=== PATIENT | male | born 1960 | race Caucasian/White ===

== ENCOUNTER 2018-10-03 12:48 | Inpatient (IN) ==
--- NOTE | 2018-10-03 13:48 | Emergency Department Note ---
Disposition Clinical Impression: Pneumonia, Acute kidney injury, Urinary retention Hypotension Qualifiers: Hypotension type: unspecified hypotension type Qualified Code(s): I95.9 - Hypotension, unspecified Disposition: Admitted As Inpatient Condition: Good Time of Disposition: 15:48 General Adult HPI - General Chief complaint: ED Abdominal Pain Stated complaint: unable to void Time Seen by Provider: 10/03/18 13:23 Source: patient, family () Limitations: no limitations Nursing Notes Reviewed: Yes Vital Signs Reviewed: Yes - History of Present Illness HPI Narrative: 58-year-old male morbidly obese, history of hypertension, heart failure and atrial fibrillation on Coumadin presents emergency department with difficulty with urination and low blood pressure. Patient states for past 2 days he dribbles when he urinates. He denies any foul smell, blood, or pain. She was recently seen here at [facility] transferred to [facility] for fall G.I. bleed pneumonia and urinary tract infection. He was there for 8 days and was recently discharged 4 days ago. At that time they state his blood pressure was low and that he was septic and on multiple antibiotics. When he left his blood pressure was still kind of low. When he came home he resumed his home medications which they do not recall. Today physical therapy came to evaluate the patient for the 1st time in noted that his blood pressure readings were low. In triage here they remained low and they state they have been consistently systolic 70s. Review of his medical record medication list here shows that he has lisinopril which they agree sounds familiar. He also states he has chronic kidney disease stage III. He denies any G.I. bleed symptoms at this time such as hemoptysis, hematemesis, bloody stool black tarry stool. They state no endoscopic procedures were performed at [facility] in the his blood count remained stable. He denies any chest pain or worsening shortness of breath compared to his baseline. He has not passed out. Pain Scale: 0 - Related Data Home Medications Medication Instructions Recorded Confirmed Aspirin Enteric Coated [Aspirin EC] 81 mg PO DAILY 07/10/15 07/10/15 Fluticasone/Salmeterol [Advair 1 each IH Q12H 07/10/15 07/10/15 500-50 Diskus] Furosemide [Lasix] 40 mg PO BID 07/10/15 07/10/15 Gabapentin 1 - 2 cap PO TID PRN 07/10/15 07/10/15 Glimepiride [Amaryl] 2 mg PO BID 07/10/15 07/10/15 HYDROcodone/Acet 5/325 mg [[place] 1 tab PO Q4-6H PRN 07/10/15 07/10/15 5-325 mg] Insulin DETEMIR [Levemir Flextouch] 20 unit SQ HS 07/10/15 07/10/15 Isosorbide MONOnitrate (24 HR) 30 mg PO QPM 07/10/15 07/10/15 [Imdur] Levalbuterol HCl [Xopenex] 0.63 mg IH Q4-6H PRN 07/10/15 07/10/15 Lisinopril [Zestril] 5 mg PO QPM 07/10/15 07/10/15 Metolazone [Zaroxolyn] 2.5 mg PO QAM 07/10/15 07/10/15 Metoprolol XL (24 HR) Succ [Toprol 50 mg PO DAILY 07/10/15 07/10/15 XL] Rivaroxaban [Xarelto] 15 mg PO QPM 07/10/15 07/10/15 Simvastatin [Zocor] 40 mg PO QPM 07/10/15 07/10/15 Sitagliptin Phosphate [Januvia] 50 mg PO QAM 07/10/15 07/10/15 Tiotropium [Spiriva] 1 puff IH DAILY PRN 07/10/15 07/10/15 Tizanidine [Zanaflex] 4 mg PO HS 07/10/15 07/10/15 predniSONE [PredniSONE] 10 mg PO AD 07/10/15 07/10/15 Previous Rx's Medication Instructions Recorded Nitrofurantoin Monohyd/M-Cryst 100 mg PO BID #14 capsule 06/19/18 [Macrobid 100 mg Capsule] Phenazopyridine HCl [Pyridium] 200 mg PO TID #6 tab 06/19/18 Allergies Allergy/AdvReac Type Severity Reaction Status Date / Time No Known Drug Allergies Allergy See Verified 10/03/18 13:11 Comments All systems ED: reviewed and negative except as stated. Review of Systems: As Per HPI Constitutional: Denies: fever, chills, weakness ENT ED: Denies: congestion Cardiovascular: Denies: chest pain Respiratory: Reports: dyspnea (Chronic). Denies: cough Gastrointestinal: Denies: abdominal pain, nausea, vomiting Genitourinary: Reports: urgency, frequency. Denies: dysuria, hematuria, disch arge Musculoskeletal: Denies: back pain, neck pain Integumentary: Denies: rash, abrasion Neurological: Denies: headache, weakness Endocrine: Reports: fatigue Past Medical History - Past Medical History Attestation: Yes The following information was validated with the patient. Source: patient Medical history: Reports: non-contributory, atrial fibrillation, CHF, COPD, DVT, diabetes, GERD, hypertension, pulmonary embolus, renal disease Psychiatric history: Reports: no psych history - Social History Smoking Status: Never smoker Smokeless Tobacco Status: No Alcohol use: Reports: none Drug use: Reports: none Physical Exam - General Limitations: no limitations General appearance: alert, in no apparent distress, obese (Morbidly) - Head Head exam: atraumatic, normocephalic, normal inspection - Eye Eye exam: Present: normal appearance, PERRL, EOMI. Absent: scleral icterus - ENT ENT exam: normal exam, normal oropharynx, mucous membranes moist, normal external ear exam - Neck Neck exam: Present: normal inspection, full ROM, trachea midline - Chest Chest inspection: Present: normal inspection, symmetric chest wall rise, other - Respiratory Respiratory exam: Present: normal lung sounds bilaterally. Absent: respiratory distress - Cardiovascular Cardiovascular exam: Present: regular rate, normal rhythm, normal heart sounds. Absent: systolic murmur, diastolic murmur - Abdominal Exam Abdominal exam: Present: soft (Obese), Non-Tender, diminished bowel sounds, other (Bruising from insulin injections). Absent: tenderness, distention, guarding, rebound, rigidity - Extremities Exam Extremities exam: Present: normal inspection, full ROM, normal capillary refill. Absent: tenderness, pedal edema, calf tenderness - Neurological Exam Neurological exam: Present: alert, oriented X3 - Psychiatric Psychiatric exam: Present: normal affect, normal mood - Skin Skin exam: Present: warm, dry, intact, normal color. Absent: rash, cyanosis, diaphoresis Course Course Narrative: Patient presents with initial complaint of inability to urinate. He has a history of chronic kidney disease. He was recently transferred to [facility] and discharge for G.I. bleed, sepsis, kidney injury and pneumonia. No recent surgical procedures are anesthesia. He states he was placed on Lasix and was urinating much more than today with the past day. Another complaint was his low blood pressure and will check some basic labs to rule out infection. Will p lace a Paredes catheter in and send out for urinalysis to rule out infection. Recheck here he has had to blood pressure readings with his systolic of 110 and 128. Will continue to evaluate for his blood pressure appears normal here at this time. He denies any G.I. bleed symptoms but will check basic labs including an INR as he is on Coumadin. He denies any recent fall or injury. - Reevaluation(s) Reevaluation #1: Urinalysis does not appear consistent with infection. He does not have a leukocytosis. He does demonstrate acute kidney injury as his creatinine is significantly elevated from his baseline currently at 4.7. His blood pressure has responded with fluids. His chest x-ray did show a right upper lobe infiltrate however he is not hypoxic. He does not report any new or worsening cough congestion for difficulty breathing however was recently discharged and treated for pneumonia at outside facility. Patient will require admission in further treatment and management and close monitoring of his blood pressure. Given his history of congestive heart failure he has been cautiously fluid resuscitated. Will continue to monitor. He has a Paredes for monitoring of his ins and outs. Impression is pneumonia, hypotension, urinary retention, acute kidney injury. Time: 15:44 - Consultations Consultation #1: Spoke with on-call hospitalist jesse Elias to admit for TERESA, pneumonia, urinary retention, hypotension. Due to patient's size he is unable to obtain a CT scan he has been ordered a ultrasound to evaluate the kidneys. Time: 15:48 Vital Signs Temperature 97.4 F L 10/03/18 13:12 Pulse Rate 75 10/03/18 13:12 Respiratory Rate 20 10/03/18 13:12 Blood Pressure 75/53 10/03/18 13:12 O2 Sat by Pulse Oximetry 96 10/03/18 13:12 Temperature 97.4 F L 10/03/18 13:12 Pulse Rate 59 10/03/18 15:27 Respiratory Rate 20 10/03/18 15:27 Blood Pressure 101/44 10/03/18 15:27 O2 Sat by Pulse Oximetry 100 10/03/18 15:27 Oxygen Delivery Oxygen Delivery Room Air Medical Decision Making - MDM Narrative Medical decision making narrative: Patient was discussed with my attending physician who agrees with ED management and final disposition. They independently evaluated the patient. Please refer to their attestation to this encounter for additional information. This note was generated by [employer] voice recognition software and as a result grammatical or spelling errors may occur using this program. - Medical Records Medical records reviewed: Yes I reviewed the patient's medical records. - Lab Data Lab results reviewed: Yes I reviewed the patient's lab results. Result diagrams: 10/03/18 14:42 10/03/18 14:42 Lab Results 10/03/18 10/03/18 10/03/18 Range/Units 14:00 14:42 14:42 WBC 9.4 (4.3-11.1) K/mcL RBC 3.72 L (4.19-5.50) M/mcL Hgb 12.0 L (12.9-16.9) g/dL Hct 37.5 (37.5-50.1) % MCV 100.8 H (83.0-100.0) fL MCH 32.3 (28.0-33.3) pg MCHC 32.0 (31.6-35.5) g/dL RDW 15.4 H (11.5-14.5) % Plt Count 224 (140-400) K/mcL MPV 11.6 (9.4-12.4) fL Immature Gran % 1.6 (0-4) % Seg Neutrophils % 71.1 % Lymphocytes % 17.0 % Monocytes % 6.4 % Eosinophils % 3.5 % Basophils % 0.4 % Neutrophils # 6.7 (1.6-8.9) K/mcL Lymphocytes # 1.6 (0.6-4.6) K/mcL Monocytes # 0.6 (0.0-1.3) K/mcL Eosinophils # 0.3 (0.0-0.6) K/mcL Basophils # 0.0 (0.0-0.2) K/mcL PT 30.0 H (9.4-12.1) Seconds INR 2.7 Sodium (136-145) mEq/L Potassium (3.5-5.1) mEq/L Chloride (98-107) mEq/L Carbon Dioxide (23-29) mEq/L BUN (6-20) mg/dL Creatinine (0.70-1.30) mg/dL Est GFR ( Amer) (> 60) Est GFR (Non-Af Amer) (> 60) BUN/Creatinine Ratio (6-26) Glucose (70-105) mg/dL Calculated Osmolality (280-300) Calcium (8.6-10.3) mg/dL Urine Color Yellow (Yellow) Urine Clarity Clear (Clear) Urine pH 5.0 (5.0-8.0) pH Units Ur Specific [place] 1.027 H (1.010-1.025) Urine Protein Negative (Neg-Trace) mg/dL Urine Glucose (UA) Normal (Normal) mg/dL Urine Ketones Negative (Negative) mg/dL Urine Blood Negative (Negative) Urine Nitrite Negative (Negative) Urine Bilirubin Small H (Negative) Urine Urobilinogen Normal (Normal) mg/dL Ur Leukocyte Esterase Small H (Negative) Urine Microscopic RBC 0-3 (0-3) per hpf Urine Microscopic WBC 15-30 H (0-3) per hpf Ur Squamous Epith Cells Many H (None-Few) per lpf Urine Bacteria None Seen (None-Few) per hpf Hyaline Casts None Seen (None-Few) per lpf Ur Culture Indicated? NO. A (NO) Blood Type Antibody Screen 10/03/18 10/03/18 Range/Units 14:42 14:48 WBC (4.3-11.1) K/mcL RBC (4.19-5.50) M/mcL Hgb (12.9-16.9) g/dL Hct (37.5-50.1) % MCV (83.0-100.0) fL MCH (28.0-33.3) pg MCHC (31.6-35.5) g/dL RDW (11.5-14.5) % Plt Count (140-400) K/mcL MPV (9.4-12.4) fL Immature Gran % (0-4) % Seg Neutrophils % % Lymphocytes % % Monocytes % % Eosinophils % % Basophils % % Neutrophils # (1.6-8.9) K/mcL Lymphocytes # (0.6-4.6) K/mcL Monocytes # (0.0-1.3) K/mcL Eosinophils # (0.0-0.6) K/mcL Basophils # (0.0-0.2) K/mcL PT (9.4-12.1) Seconds INR Sodium 131 L (136-145) mEq/L Potassium 4.7 (3.5-5.1) mEq/L Chloride 95 L (98-107) mEq/L Carbon Dioxide 26 (23-29) mEq/L BUN 63 H (6-20) mg/dL Creatinine 4.70 H (0.70-1.30) mg/dL Est GFR ( Amer) 16 L (> 60) Est GFR (Non-Af Amer) 13 L (> 60) BUN/Creatinine Ratio 13 (6-26) Glucose 301 H (70-105) mg/dL Calculated Osmolality 301 H (280-300) Calcium 9.2 (8.6-10.3) mg/dL Urine Color (Yellow) Urine Clarity (Clear) Urine pH (5.0-8.0) pH Units Ur Specific [place] (1.010-1.025) Urine Protein (Neg-Trace) mg/dL Urine Glucose (UA) (Normal) mg/dL Urine Ketones (Negative) mg/dL Urine Blood (Negative) Urine Nitrite (Negative) Urine Bilirubin (Negative) Urine Urobilinogen (Normal) mg/dL Ur Leukocyte Esterase (Negative) Urine Microscopic RBC (0-3) per hpf Urine Microscopic WBC (0-3) per hpf Ur Squamous Epith Cells (None-Few) per lpf Urine Bacteria (None-Few) per hpf Hyaline Casts (None-Few) per lpf Ur Culture Indicated? (NO) Blood Type O POSITIVE Antibody Screen NEGATIVE - Radiology Data Radiology results reviewed: Yes I reviewed the patient's radiology results. Chest X-Ray 10/03/18 13:46 IMPRESSION: Right upper lobe airspace disease possibly representing pneumonia D/ / Azeem Root MD / Azeem Root MD Interpreting Provider: Azeem Root MD - EKG Data EKG #1 EKG attestation: Yes I reviewed and interpreted this EKG. EKG results narrative: EKG performed 1400 normal sinus rhythm 62 beats per minute, normal axis, good R wave progression, no ST elevation or depression, intervals appear within normal limits. No old EKG available for comparison at this time. No acute ischemic changes. Attestation Statement - Attestation Attestation: I examined this patient and my medical decision-making was reviewed with the Resident Physician. I agree with the documented findings, disposition and treatment plan as described except to the extent set forth below. Urinary retention, morbid obesity, obesity hypoventilation syndrome with resulting pneumonia. Recent fall and evaluation at [facility]. We will admit for further management of pneumonia, start antibiotics avoid nephrotoxic antibiotics, IV fluids, likely will require nephrology consultation for acute renal failure. I spent greater than 35 minutes of critical care time resuscitating this acutely ill patient suffering from acute renal failure in the setting of pneumonia. This was excluding billable procedures.
[2018-10-03 14:15] LABS: Bilirubin,Urine Small (Negative); Blood,Urine Negative (Negative); Clarity,Urine Clear (Clear); Color,Urine Yellow (Yellow); Glucose,Urine (UA) Normal (Normal); Ketones,Urine Negative (Negative); Leukocyte Esterase,Urine Small (Negative); Nitrite,Urine Negative (Negative); Protein,Urine Negative (Neg-Trace); Specific Gravity,Urine 1.027 (1.010-1.025); Urobilinogen,Urine Normal (Normal)
[2018-10-03 14:18] LABS: Bacteria,Urine None Seen per hpf (None-Few); RBC,Urine 0-3 per hpf (0-3); Squamous Epithelial Cell,Urine Many per lpf (None-Few); WBC,Urine 15-30 per hpf (0-3)
[2018-10-03 14:28] LABS: Hyaline Casts,Urine None Seen per lpf (None-Few)
[2018-10-03] MEDS ORDERED: 0.9 % Sodium Chloride 500 ML IVC ONE (14:33)
[2018-10-03 14:56] LABS: Basophils % 0.4 %; Eosinophils # 0.3 K/mcL (0.0-0.6); Eosinophils % 3.5 %; Hematocrit 37.5 % (37.5-50.1); Immature Granulocytes % 1.6 % (0-4); Lymphocytes # 1.6 K/mcL (0.6-4.6); Mean Corpuscular Hemoglobin 32.3 pg (28.0-33.3); Mean Corpuscular Volume 100.8 fL (83.0-100.0); Mean Platelet Volume 11.6 fL (9.4-12.4); Monocytes # 0.6 K/mcL (0.0-1.3); Monocytes % 6.4 %; Neutrophils # 6.7 K/mcL (1.6-8.9); Platelet Count 224 K/mcL (140-400); Red Blood Count 3.72 M/mcL (4.19-5.50); Red Cell Distribution Width 15.4 % (11.5-14.5); Segmented Neutrophils % 71.1 %
[2018-10-03 15:16] LABS: Calcium 9.2 mg/dL (8.6-10.3); Potassium 4.7 mEq/L (3.5-5.1)
[2018-10-03 15:22] LABS: INR 2.7
[2018-10-03] MEDS ORDERED: Piperacillin/Tazobactam 3.375 GM in Water for inj. (sterile) 20 ML 20 ML IVP ONE (15:42)
[2018-10-03] MEDS ORDERED: Cefepime HCl 2,000 MG in Water for inj. (sterile) 20 ML IVP ONE (15:42)
[2018-10-03] MEDS ORDERED: 0.9 % Sodium Chloride 1,000 ML IVC ONE (15:43)
[2018-10-03] MEDS ORDERED: Azithromycin 500 MG in D5% in Water 250 ML IVPB ONE (16:12)
--- NOTE | 2018-10-03 17:34 | Internal Med History&Physical ---
<Andrea Nowak - Last Filed: 10/03/18 18:39> Date of Encounter: 10/03/18 Time of Encounter: 04:30 Internal Medicine - H&P: HPI Chief complaint: Difficulty urinating Admitted From: Home Plans for Post Hospital Care: Home History of present illness: Mr. Llanes is a 58 year old male with hx significant for Afib, CHF, COPD, DM, HTN, CKD III, and multiple prior nephrolithiasis who was working with PT today a nd found to be hypotensive with systolics in the 70's and told to go to the ED. He says he had no symptoms with hypotension. His main complaint is he has been unable to urinate more than a few dribbles the last 2 days. He previously was urinating normally. He says he feels the urge to urinate but after a few drops the urge goes away. He denies hematuria, dysuria, flank pain. He says he has gained 10 lbs last couple days. Upon arrival to the ED initial vitals 97.4F, HR 75, RR 20, BP 75/53, 96%rmair. Cxr showed R upper lobe airspace disease, possibly pneumonia. He was given initial fluid bolus 500ml that pressures initally appeared to respond to at 129/69. He received another 1L bolus but BP h as been lower since last recorded at 94/69 and lower systolics in 80's when I was in room. He was recently dc from [facility] 4 days ago and was treated for fall, gi bleed, sepsis, pneumonia, and UTI. He was given no new medications at dc. He thinks his BP is normally 105-120 systolic. He denies subjective fever/chills, blurry vision, diplopia, dizziness/lightheadedness, chest pain, pleuritic chest pain, palpitations, productive cough different from baseline, sob worse from baseline, abdominal pain, N/V, constipation, diarrhea, blood in stool. Past Med Surg Social Fam HX - Past Medical History Medical history: non-contributory, atrial fibrillation, CHF, COPD, DVT, diabetes, GERD, hypertension, kidney stones, pulmonary embolus, renal disease Psychiatric history: no psych history - Social History Smoking Status: Never smoker Smokeless Tobacco Status: No Alcohol use: none Drug use: none Internal Medicine - H&P: Meds Aspirin Enteric Coated [Aspirin EC] 81 mg PO DAILY 07/10/15 [History] Fluticasone/Salmeterol [Advair 500-50 Diskus] 1 each IH Q12H 07/10/15 [History] Insulin DETEMIR [Levemir Flextouch] 20 unit SQ HS 07/10/15 [History] Rivaroxaban [Xarelto] 15 mg PO QPM 07/10/15 [History] Sitagliptin Phosphate [Januvia] 50 mg PO QAM 07/10/15 [History] Allergy/AdvReac Type Severity Reaction Status Date / Time No Known Drug Allergies Allergy See Verified 10/03/18 13:11 Comments All Systems PM: A 10-system review of systems was performed and is negative for pertinent findings except as documented above in the HPI. - Constitutional Vitals: Temp Pulse Resp BP Pulse Ox 97.4 F L 59 20 101/44 100 10/03/18 13:12 10/03/18 15:27 10/03/18 15:27 10/03/18 15:27 10/03/18 15:27 Exam: General: Awake, alert, morbidly obese, no acute distress or signs of toxicity Head: Atraumatic, normocephalic Eye: Pupils equal and round, EOMi, no scleral icterus ENT: mucus membranes moist Chest: Symmetric chest rise, non tender to palpation Cardiac: RRR, distant but present S1/S2, no murmurs, rubs, gallops appreciated, radial pulses 2+ bilat, trace edema Pulmonary: Normal resp effort, decreased air movement, diminished throughout, no wheezes, rhonchi, rales appreciated Abdominal: Soft, tender to palpation RUQ/LUQ, non distended, no voluntary guarding, rebound, or rigidity. Bruising on abdomen Back: Non tender, no CVA tenderness Extremities: No clubbing, cyanosis Neuro: CN's grossly intact, no focal deficits Psych: normal affect Integumentary: [place], warm, dry, intact Internal Med - H&P Results - Labs CBC & Chem 7: 10/03/18 14:42 10/03/18 14:42 Labs: Short CBC 10/03/18 Range/Units 14:42 WBC 9.4 (4.3-11.1) K/mcL Hgb 12.0 L (12.9-16.9) g/dL Hct 37.5 (37.5-50.1) % Plt Count 224 (140-400) K/mcL Neutrophils # 6.7 (1.6-8.9) K/mcL BMP 10/03/18 14:42 Sodium 131 L Potassium 4.7 Chloride 95 L Carbon Dioxide 26 BUN 63 H Creatinine 4.70 H Glucose 301 H Calcium 9.2 Urine 10/03/18 Range/Units 14:00 Urine Color Yellow (Yellow) Urine Clarity Clear (Clear) Urine pH 5.0 (5.0-8.0) pH Units Ur Specific [place] 1.027 H (1.010-1.025) Urine Protein Negative (Neg-Trace) mg/dL Urine Glucose (UA) Normal (Normal) mg/dL - Impressions ITS Impressions Chest X-Ray 10/03/18 13:46 IMPRESSION: Right upper lobe airspace disease possibly representing pneumonia D/ / Azeem Root MD / Azeem Root MD Interpreting Provider: Azeem Root MD - Assessment and plan (1) Hypotension Current Visit: Yes Status: Acute Assessment and plan: -Arrival to ED RR 20, BP 75/53, TERESA, and suspected pneumonia on ED -CXR 10/03/18 Right upper lobe airspace disease possibly representing pneumonia -I do not think he is septic at this time given no signs of infection and pneumonia call on cxr appears soft to me and likely residual imaging lag from recent pneumonia treatment. -Will treat as sepsis till proven otherwise but does not meet criteria at this time. -BP appears to initially respond to fluid bolus in ED but all repeat readings since have been lower. Likely cuff placement discrepancy. -WBC 9.4, afebrile -Empiric vanc, cefepime, and zosyn renally dosed given Cr 4.7 -BC x2 sent -Resp pcr, legionella, s pneumo, sputum culture/gram stain, lactic urine culture pending -Most recent BP 101/44 -Will continue to monitor Qualifiers: Hypotension type: unspecified hypotension type Qualified Code(s): I95.9 - Hypotension, unspecified (2) Acute kidney injury Current Visit: Yes Status: Acute Assessment and plan: -Cr 4.7, BUN 63 -Etiology unknown at this time prerenal vs postrenal -Hypotensive on arrival -Minimal urine output last 2 days with just dribbles -Obstructive less likely given coy was placed in ED and minimal urine output drained -Will get renal US and ECHO -Renal dose meds -Hold antihypertensives and nephrotoxic meds -Will trend renal function, urine output, and electrolytes -Neph consulted (3) Urinary retention Current Visit: Yes Status: Acute Assessment and plan: -2 days of minimal urine output. -Coy was placed in ED and minimal output -TERESA currently with Cr 4.7 and BUN 63 -Will monitor (4) Pneumonia Current Visit: Yes Status: Suspected Assessment and plan: -Suspected pneumonia on CXR in ED -CXR 10/03/18 Right upper lobe airspace disease possibly representing pneumonia -No other signs of infection, wbc 9.4, afebrile, baseline cough and sob not worsening -Was treated for pneumonia at [facility] last week. CXR findings could likely be post treatment imaging lag. -Will send resp infectious workup thats pending -Will continue to monitor Qualifiers: Pneumonia type: due to unspecified organism Laterality: right Lung location: upper lobe of lung Qualified Code(s): J18.1 - Lobar pneumonia, unspecified organism (5) Afib Current Visit: No Status: Chronic Assessment and plan: Hx of afib. -Anticoagulated on warfarin -Home meds not fully clear but appears from past records to be controlled with diltiazem, metoprolol, and amioderone. -Will hold till med rec finalized Qualifiers: Atrial fibrillation type: chronic Qualified Code(s): I48.2 - Chronic atrial fibrillation (6) Diabetes mellitus type 2, insulin dependent Current Visit: Yes Status: Acute Assessment and plan: -Glucose on arrival 301 -Past records indicate basal, ssi, and adjuncts -Will start basal and ssi now (7) CKD (chronic kidney disease) stage 3, GFR 30-59 ml/min Current Visit: Yes Status: Acute Assessment and plan: Hx of CKD 3 -TERESA currently -Renal dosing meds, avoiding nephrotoxins -Neph consulted (8) CHF (congestive heart failure) Current Visit: Yes Status: Acute Assessment and plan: Hx of CHF -Decreased systolic output may be cause of hypotension and TERESA -Will get ECHO -Holding all diuretics Qualifiers: Heart failure type: unspecified Heart failure chronicity: chronic Qualified Code(s): I50.9 - Heart failure, unspecified (9) Morbid obesity with BMI of 60.0-69.9, adult Current Visit: Yes Status: Acute Assessment and plan: Morbidly obese -BMI 66.5 -Should consider outpt consult for bariatric surgerical options (10) DVT prophylaxis Current Visit: Yes Status: Acute Assessment and plan: Warfarin, INR 2.7 on arrival - Time Spent With Patient Total time spent is greater than 50% in coordination of care (as documented) at patient's floor/unit and/or counseling patient: 25 - 35 minutes <Zahra Riley - Last Filed: 10/04/18 07:23> Date of Encounter: 10/04/18 Internal Medicine - H&P: HPI History of present illness: Mr. Llanes is a 58 year old male All Systems PM: A 10-system review of systems was performed and is negative for pertinent find ings except as documented above in the HPI. - Constitutional Vitals: Temp Pulse Resp BP Pulse Ox 98.2 F 75 15 96/43 94 10/04/18 04:28 10/04/18 04:28 10/04/18 04:28 10/04/18 04:28 10/04/18 04:28 Internal Med - H&P Results - Labs CBC & Chem 7: 10/04/18 04:27 10/04/18 04:27 Labs: Short CBC 10/03/18 10/04/18 Range/Units 14:42 04:27 WBC 9.4 8.1 (4.3-11.1) K/mcL Hgb 12.0 L 11.0 L (12.9-16.9) g/dL Hct 37.5 34.3 L (37.5-50.1) % Plt Count 224 195 (140-400) K/mcL Neutrophils # 6.7 5.8 (1.6-8.9) K/mcL BMP 10/03/18 10/04/18 14:42 04:27 Sodium 131 L 135 L Potassium 4.7 4.5 Chloride 95 L 100 Carbon Dioxide 26 26 BUN 63 H 61 H Creatinine 4.70 H 3.91 H Glucose 301 H 190 H Calcium 9.2 8.5 L Urine 10/03/18 Range/Units 14:00 Urine Color Yellow (Yellow) Urine Clarity Clear (Clear) Urine pH 5.0 (5.0-8.0) pH Units Ur Specific [place] 1.027 H (1.010-1.025) Urine Protein Negative (Neg-Trace) mg/dL Urine Glucose (UA) Normal (Normal) mg/dL - Impressions ITS Impressions Chest X-Ray 10/03/18 13:46 IMPRESSION: Right upper lobe airspace disease possibly representing pneumonia D/ / Azeem Root MD / Azeem Root MD Interpreting Provider: Azeem Root MD - Assessment and plan (1) Afib Current Visit: No Status: Chronic Qualifiers: Atrial fibrillation type: chronic Qualified Code(s): I48.2 - Chronic atrial fibrillation (2) Hypotension Current Visit: Yes Status: Acute Qualifiers: Hypotension type: unspecified hypotension type Qualified Code(s): I95.9 - Hypotension, unspecified (3) Pneumonia Current Visit: Yes Status: Suspected Qualifiers: Pneumonia type: due to unspecified organism Laterality: right Lung location: upper lobe of lung Qualified Code(s): J18.1 - Lobar pneumonia, unspecified organism (4) Acute kidney injury Current Visit: Yes Status: Acute (5) Urinary retention Current Visit: Yes Status: Acute (6) Morbid obesity with BMI of 60.0-69.9, adult Current Visit: Yes Status: Acute (7) Diabetes mellitus type 2, insulin dependent Current Visit: Yes Status: Acute (8) CKD (chronic kidney disease) stage 3, GFR 30-59 ml/min Current Visit: Yes Status: Acute (9) CHF (congestive heart failure) Current Visit: Yes Status: Acute Qualifiers: Heart failure type: unspecified Heart failure chronicity: chronic Qualified Code(s): I50.9 - Heart failure, unspecified (10) DVT prophylaxis Current Visit: Yes Status: Acute - Time Spent With Patient Total time spent is greater than 50% in coordination of care (as documented) at patient's floor/unit and/or counseling patient: - Attending Attestation I examined this patient and my medical decision-making was reviewed with the Resident Physician Dr Nowak. I agree with the documented findings, disposition and treatment plan as described except to the extent set forth below. Mr Mario Alberto presented with 2 days little urinary outptu an dlow bp on home BP herminio ck by home PT today. He was seen in our ED 09/22 after fall at home on coumadin. He required CT head which could not be done here due to his body habitus. He was tx to [facility] where he reportedly received care per pt for sepsis with uti and pna. He notes routinely low bps there and he was dc with decreased BB dose, but all other home meds unchanged. He does not know what abx he received, what bps were on dc, what creat was on dc. He follows with Dr To of Nephro for CKD. He has been home for 4 days and feeling fine per pt without fevers, chills, n/v, rash, wounds, wheezing or sob. He notes chronic cough and that it is unchanged and with clear sputum. No diarrhea. He has not been lightheaded or dizzy. He was surprised when bp was low today on home check. two days prior was in 110s sbp and today 70s-80s. He denies any bleeding, hematochezia, melena, brbpr, hemoptysis. He denies poor oral intake, back/cva pain or symptoms of kidney stones, dysuria, hematuria, supra pubic tenderness. "dribbles or urine" for 2 days He is awake, family presenst, they have no [facility] documentation or home med documentation with them He has no complaints at this time BPs in ED variable, 80s sbp min, and then 110-120 sbp after 1.5L fluid. Currently 80s sbp again, sinus on tele and asx. gen- alert, awake,appears stated age. morbidly obese, not toxic appearing, in nad eyes- pupils equal round , no conjunctival pallor cv- reg rate and rhythm on tele, radial pulse regular, gien his body habitus can not clearly ausciltate heart sounds, warm ext, normal cap refill lungs- distant breath sounds, no overt wheezing, rhonchi or crackles in ant/lat luong, normal resp effort on ra with symmetric chest rise abd- soft, non tender, non distended skin- warm dry no pallor, no rash, no mottling, no wounds on anterior surfaces appreciated neuro- AAOx3, CN grossly intact, no focal deficits Hypotension, sbps ranging 80s-120s, recent history of same -he does not have apparent bleeding or anemia as cause of hypotension -he is in nsr and this does not appear to be cardiogenic shock picture -cannot rule out sepsis, given recent sepsis at [facility], cxr with RUL infiltrate ([place] if this was location of supposed [facility] pna), and recent UTI--though his vs and wbc do not meet for sepsis, he did have BP drop in ED--treat as sepsis until rule out--vanc + cefepime+ zosyn renally dosed, bl cxs pending, send ucx, check sputum, legionella, strep ag -received 1.5 L bolus in ED, d/w Dr To, would give MIVF at this time while we assess his cardiac output with echo--last echo normal ef and mild diastolic dysfunction 10/2016, floor RN to assume pt care was also contacted and will monitor for bp changes prompting further fluid boluses, as given his kg weight and documented chf hx--would not fully bolus him that amount, will need to be monitoring for changes and further fluids continuously tonight -tele -lactate pending -will attempt to obtain [facility] records TERESA with creat 4.7 on CKD Stage III with 09/22 creat 2.45 - suspect prerenal, possible atn -obtain [facility] records, family will bring in dc paperwork tomorrow -have already d/w his nephro Dr To and will see in consult --ivf as above, will get renal US, no ct scan required at this time as does not appear to be obstructive picture, coy cath in ED with about 100 cc out, ua reviewed, check echo to assess output, hold antihypertensives, renal dose meds, hold his multiple nephro toxic home meds, strict i/os Diastolic CHF 11/14 echo EF 50-55%, mild DD, mod pulm htn, no sig valve disease -daily weights, i/os, repeat echo, appears stable without signs of fluid overload on exam Afib on warfarin- INR 2.7, cont home AC with pharm to dose Macrocytic chronic Anemia Hgb 12, appears at his chronic anemia baseline and improved from 09/22, cont to monitor for signs of bleeding DM- hyperglycemia- ada diet, SSI + home long acting, hold oral home meds, prn hypoglycemics
[2018-10-03] MEDS ORDERED: Naloxone 0.4 MG/ML INJ IVP PRN (17:44)
--- NOTE | 2018-10-03 17:44 | Event Note ---
Date of Encounter: 10/03/18 Time of Encounter: 16:45 I examined this patient and my medical decision-making was reviewed with the Resident Physician Dr Nowak. I agree with the documented findings, disposition and treatment plan as described except to the extent set forth below. To serve as attestation to pending H&P, with discussion of case, assessment and plan already had with resident Mr Llanes presented with 2 days little urinary outptu an dlow bp on home BP check by home PT today. He was seen in our ED 09/22 after fall at home on coumadin. He required CT head which could not be done here due to his body habitus. He was tx to [facility] where he reportedly received care per pt for sepsis with uti and pna. He notes routinely low bps there and he was dc with decreased BB dose, but all other home meds unchanged. He does not know what abx he received, what bps were on dc, what creat was on dc. He follows with Dr To of Nephro for CKD. He has been home for 4 days and feeling fine per pt without fevers, chills, n/v, rash, wounds, wheezing or sob. He notes chronic cough and that it is unchanged and with clear sputum. No diarrhea. He has not been lightheaded or dizzy. He was surprised when bp was low today on home check. two days prior was in 110s sbp and today 70s-80s. He denies any bleeding, hematochezia, melena, brbpr, hemoptysis. He denies poor oral intake, back/cva pain or symptoms of kidney stones, dysuria, hematuria, supra pubic tenderness. "dribbles or urine" for 2 days He is awake, family presenst, they have no [facility] documentation or home med documentation with them He has no complaints at this time BPs in ED variable, 80s sbp min, and then 110-120 sbp after 1.5L fluid. Currently 80s sbp again, sinus on tele and asx. gen- alert, awake,appears stated age. morbidly obese, not toxic appearing, in nad eyes- pupils equal round , no conjunctival pallor cv- reg rate and rhythm on tele, radial pulse regular, gien his body habitus can not clearly ausciltate heart sounds, warm ext, normal cap refill lungs- distant breath sounds, no overt wheezing, rhonchi or crackles in ant/lat luong, normal resp effort on ra with symmetric chest rise abd- soft, non tender, non distended skin- warm dry no pallor, no rash, no mottling, no wounds on anterior surfaces appreciated neuro- AAOx3, CN grossly intact, no focal deficits Hypotension, sbps ranging 80s-120s, recent history of same -he does not have apparent bleeding or anemia as cause of hypotension -he is in nsr and this does not appear to be cardiogenic shock picture -cannot rule out sepsis, given recent sepsis at [facility], cxr with RUL infiltrate ([place] if this was location of supposed [facility] pna), and recent UTI--though his vs and wbc do not meet for sepsis, he did have BP drop in ED--treat as sepsis until rule out--vanc + cefepime+ zosyn renally dosed, bl cxs pending, send ucx, check sputum, legionella, strep ag -received 1.5 L bolus in ED, d/w Dr To, would give MIVF at this time while we assess his cardiac output with echo--last echo normal ef and mild diastolic dysfunction 10/2016, floor RN to assume pt care was also contacted and will monitor for bp changes prompting further fluid boluses, as given his kg weight and documented chf hx--would not fully bolus him that amount, will need to be monitoring for changes and further fluids continuously tonight -tele -lactate pending -will attempt to obtain [facility] records TERESA with creat 4.7 on CKD Stage III with 09/22 creat 2.45 - suspect prerenal, possible atn -obtain [facility] records, family will bring in dc paperwork tomorrow -have already d/w his nephro Dr To and will see in consult --ivf as above, will get renal US, no ct scan required at this time as does not appear to be obstructive picture, coy cath in ED with about 100 cc out, ua reviewed, check echo to assess output, hold antihypertensives, renal dose meds, hold his multiple nephro toxic home meds, strict i/os Diastolic CHF 11/14 echo EF 50-55%, mild DD, mod pulm htn, no sig valve disease -daily weights, i/os, repeat echo, appears stable without signs of fluid overl oad on exam Afib on warfarin- INR 2.7, cont home AC with pharm to dose Macrocytic chronic Anemia Hgb 12, appears at his chronic anemia baseline and improved from 09/22, cont to monitor for signs of bleeding DM- hyperglycemia- ada diet, SSI + home long acting, hold oral home meds, prn hypoglycemics
[2018-10-03] MEDS ORDERED: D5% in Water 1,000 ML IVC PRN (18:26)
[2018-10-03] MEDS ORDERED: *HR* Dextrose 50 % in Water (Syg) 50 ML SYRINGE IVP PRN (18:26)
[2018-10-03] MEDS ORDERED: Dextrose Gel 15 GM/37.5 ML TUBE PO PRN ×2 (18:26)
[2018-10-03] MEDS: Insulin LISPRO 300 UNITS/3 ML VIAL SQ SCH ×2 (21:14→22:04)
[2018-10-03] MEDS: Insulin DETEMIR 100 UNIT/ML X5UNITS SQ SCH (21:14)
[2018-10-03] MEDS ORDERED: *HR* Warfarin 2 MG TABLET PO ONE (21:35)
[2018-10-03 21:52] LABS: Estimated Average Glucose 209 mg/dl; Hemoglobin A1C 8.9 %
[2018-10-03] MEDS: 0.9 % Sodium Chloride 1,000 ML IVC SCH (22:03)
[2018-10-03] MEDS: Piperacillin/Tazobactam 3.375 GM in 0.9 % Sodium Chloride Mini Bag 100 ML IVPB SCH (23:02)
[2018-10-04 00:39] LABS: Adenovirus Not Detected (Not Detect); Bordetella Pertussis Not Detected (Not Detect); Chlamydophila pneumoniae Not Detected (Not Detect); Coronavirus 229E Not Detected (Not Detect); Coronavirus HKU1 Not Detected (Not Detect); Coronavirus NL63 Not Detected (Not Detect); Coronavirus OC43 Not Detected (Not Detect); Human Metapneumovirus Not Detected (Not Detect); Human Rhinovirus/Enterovirus Not Detected (Not Detect); Influenza A Subtype 2009 H1 Not Detected (Not Detect); Influenza A Untypeable Not Detected (Not Detect); Influenza B Not Detected (Not Detect); Mycoplasma pneumoniae Not Detected (Not Detect); Parainfluenza Virus 1 Not Detected (Not Detect); Parainfluenza Virus 2 Not Detected (Not Detect); Parainfluenza Virus 3 Not Detected (Not Detect); Parainfluenza Virus 4 Not Detected (Not Detect); Respiratory Syncytial Virus Not Detected (Not Detect)
[2018-10-04] MEDS: Piperacillin/Tazobactam 3.375 GM in 0.9 % Sodium Chloride Mini Bag 100 ML IVPB SCH ×3 (03:11→16:25)
[2018-10-04 04:52] LABS: Basophils % 0.2 %; Eosinophils # 0.2 K/mcL (0.0-0.6); Eosinophils % 2.7 %; Hematocrit 34.3 % (37.5-50.1); Immature Granulocytes % 1.2 % (0-4); Lymphocytes # 1.4 K/mcL (0.6-4.6); Lymphocytes % 17.1 %; Mean Corpuscular HGB Conc 32.1 g/dL (31.6-35.5); Mean Corpuscular Hemoglobin 31.9 pg (28.0-33.3); Mean Corpuscular Volume 99.4 fL (83.0-100.0); Mean Platelet Volume 11.3 fL (9.4-12.4); Monocytes # 0.5 K/mcL (0.0-1.3); Monocytes % 6.7 %; Neutrophils # 5.8 K/mcL (1.6-8.9); Platelet Count 195 K/mcL (140-400); Red Blood Count 3.45 M/mcL (4.19-5.50); Red Cell Distribution Width 15.5 % (11.5-14.5); Segmented Neutrophils % 72.1 %
[2018-10-04 04:59] LABS: INR 2.4; Prothrombin Time 27.5 Seconds (9.4-12.1)
[2018-10-04] MEDS ORDERED: Vancomycin 0 MG in 0.9 % Sodium Chloride 250 ML IVPB SCH (05:00)
[2018-10-04 05:12] LABS: Calcium 8.5 mg/dL (8.6-10.3); Magnesium 1.9 mg/dL (1.6-2.6); Potassium 4.5 mEq/L (3.5-5.1)
[2018-10-04] MEDS: 0.9 % Sodium Chloride 1,000 ML IVC SCH ×2 (06:01→20:23)
--- NOTE | 2018-10-04 06:26 | Internal Med Progress Note ---
<Zahra Riley - Last Filed: 10/04/18 10:42> Hospitalist Progress Note - Encounter Date of Encounter: 10/04/18 - Exam Vitals: Temp Pulse Resp BP Pulse Ox 98.2 F 75 15 96/43 94 10/04/18 04:28 10/04/18 04:28 10/04/18 04:28 10/04/18 04:28 10/04/18 04:28 - Assessment and Plan (1) Afib Current Visit: No Status: Chronic (2) Hypotension Current Visit: Yes Status: Acute (3) Pneumonia Current Visit: Yes Status: Suspected (4) Acute kidney injury Current Visit: Yes Status: Acute (5) Urinary retention Current Visit: Yes Status: Acute (6) Morbid obesity with BMI of 60.0-69.9, adult Current Visit: Yes Status: Acute (7) Diabetes mellitus type 2, insulin dependent Current Visit: Yes Status: Acute (8) CKD (chronic kidney disease) stage 3, GFR 30-59 ml/min Current Visit: Yes Status: Acute (9) CHF (congestive heart failure) Current Visit: Yes Status: Acute (10) DVT prophylaxis Current Visit: Yes Status: Acute - Time Spent with Patient Total time spent is greater than 50% in coordination of care (as documented) at patient's floor/unit and/or counseling patient: Internal Medicine: Result - Labs CBC & Chem 7: 10/04/18 04:27 10/04/18 04:27 Labs: Short CBC 10/03/18 10/04/18 Range/Units 14:42 04:27 WBC 9.4 8.1 (4.3-11.1) K/mcL Hgb 12.0 L 11.0 L (12.9-16.9) g/dL Hct 37.5 34.3 L (37.5-50.1) % Plt Count 224 195 (140-400) K/mcL Neutrophils # 6.7 5.8 (1.6-8.9) K/mcL BMP 10/03/18 10/04/18 14:42 04:27 Sodium 131 L 135 L Potassium 4.7 4.5 Chloride 95 L 100 Carbon Dioxide 26 26 BUN 63 H 61 H Creatinine 4.70 H 3.91 H Glucose 301 H 190 H Calcium 9.2 8.5 L Urine 10/03/18 Range/Units 14:00 Urine Color Yellow (Yellow) Urine Clarity Clear (Clear) Urine pH 5.0 (5.0-8.0) pH Units Ur Specific [place] 1.027 H (1.010-1.025) Urine Protein Negative (Neg-Trace) mg/dL Urine Glucose (UA) Normal (Normal) mg/dL - ABG Interpretation ABG results: PT/INR, D-dimer PT 27.5 Seconds (9.4-12.1) H 10/04/18 04:27 - Impressions Impressions Chest X-Ray 10/03/18 13:46 IMPRESSION: Right upper lobe airspace disease possibly representing pneumonia D/ / Azeem Root MD / Azeem Root MD Interpreting Provider: Azeem Root MD Consult Discharge Plan - Plan Referrals: NONE,PCP [Primary Care Provider] - - Attending Attestation I examined this patient and my medical decision-making was reviewed with the Resident Physician Dr Nowak. I agree with the documented findings, disposition and treatment plan as described except to the extent set forth below. Mr Llanes was admitted with hypotension and decreased urinary outptu with teresa on ckd awake, no fevers, chills, presyncope or syncope. has had no sob, chest pain or palpitations. no cough, diarrhea. uses o2 nc at home nocturnally gen- alert, awake,appears stated age. morbidly obese cv- reg rate and rhythm on tele, radial pulse regular and equal, given his body habitus can not clearly auscultate heart sounds, warm ext lungs- distant breath sounds, no overt wheezing, rhonchi or crackles in ant/lat luong, normal resp effort on ra abd- soft, non tender, non distended skin- warm dry no pallor, no rash neuro- AAOx3 Hypotension,consistently 90s/40-50s here, asx -he does not have apparent bleeding or anemia, he is in nsr with cardiac sxs, -he does not meet criteria for sepsis but given recent sepsis tx at [facility], cxr with RUL infiltrate (uk if this was location of supposed [facility] pna), and recent UTI--though his vs and wbc do not meet for sepsis, he did have BP drop in ED--treat as infectious until ruled out--vanc + cefepime+ zosyn renally dosed, bl cxs pending, send ucx (ordered not yet collected), check sputum; legionella, strep ag neg -IVFs, hold home antihypertensives and monitor, check echo -obtain [facility] records TERESA with creat 4.7 on CKD Stage III with 09/22 creat 2.45 - suspect prerenal, possible atn -obtain [facility] records -neprho following --ivf, renal US, no ct scan required at this time as does not appear to be obstructive picture, coy cath in ED with about 100 cc out, uop at goal overnight, hold antihypertensives Diastolic CHF 11/14 echo EF 50-55%, mild DD, mod pulm htn, no sig valve disease - repeat echo pending, appears stable without signs of fluid overload on exam Afib on warfarin- INR at goal, cont home AC with pharm to dose, cont amio , hold cardizem and BB given hypotension Macrocytic chronic Anemia, appears at his chronic anemia baseline and improved from 09/22, cont to monitor for signs of bleeding DM- hyperglycemia- ada diet, SSI + reduced home long acting (he had mentioned recent change and was unsure to what), hold oral home meds, bs at goal this morning , obtain [facility] records confirmed full code <Andrea Nowak - Last Filed: 10/04/18 12:54> Hospitalist Progress Note - Encounter Date of Encounter: 10/04/18 Time of Encounter: 06:25 - Subjective Interval History: Laying comfortably in bed. Says he is feeling better than yesterday. Did not tolerate BiPAP overnight cause of full face mask, uses nasal mask at home. He has no complaints. His is bringing [facility] records in with her this am. He denies subjective fever/chills, blurry vision, diplopia, dizziness/lightheadedness, chest pain, worse productive cough/sob from baseline, pleuritic chest pain, abdominal pain, back pain, N/V. - Exam Vitals: Temp Pulse Resp BP Pulse Ox 98.2 F 75 15 96/43 94 10/04/18 04:28 10/04/18 04:28 10/04/18 04:28 10/04/18 04:28 10/04/18 04:28 Exam: General: Awake, alert, morbidly obese, no acute distress or signs of toxicity Head: Atraumatic, normocephalic Eye: Pupils equal and round, EOMi, no scleral icterus ENT: mucus membranes moist Chest: Symmetric chest rise, non tender to palpation Cardiac: RRR, distant but present S1/S2, no murmurs, rubs, gallops appreciated, radial pulses 2+ bilat, trace edema Pulmonary: Normal resp effort, decreased air movement, diminished throughout, no wheezes, rhonchi, rales appreciated Abdominal: Soft, tender to palpation RUQ/LUQ, non distended, no voluntary guarding, rebound, or rigidity. Bruising on abdomen Back: Non tender, no CVA tenderness Extremities: No clubbing, cyanosis Neuro: CN's grossly intact, no focal deficits Psych: normal affect Integumentary: [place], warm, dry, intact - Assessment and Plan (1) Hypotension Current Visit: Yes Status: Acute Assessment and Plan: -Arrival to ED RR 20, BP 75/53, TERESA, and suspected pneumonia on ED -CXR 10/03/18 Right upper lobe airspace disease possibly representing pneumonia -I do not think he is septic at this time given no signs of infection and pneumonia call on cxr appears soft to me and likely residual imaging lag from recent pneumonia treatment. -Will treat as sepsis till proven otherwise but does not meet criteria at this time. -BP appears to initially respond to fluid bolus in ED but all repeat readings since have been lower. Likely cuff placement discrepancy. -WBC 9.4, afebrile on arrival. -Empiric vanc, cefepime, and zosyn renally dosed given Cr 4.7 on arrival. -BC x2 drawn 10/03/18 ngtd -Sputum culture/gram stain pending -Urine culture pending, UA not indicative of UTI -Resp pcr, legionella, s pneumo, and lactic normal. -WBC lower today, 8.1, afebrile -Will request records from [facility] visit last week -Will deescalate abx at 24hrs and have [facility] records. -BP overnight remained in 90's/40's -Most recent BP 96/50 -Will continue to monitor (2) Acute kidney injury Current Visit: Yes Status: Acute Assessment and Plan: -Cr 4.7, BUN 63 on arrival -Etiology unknown at this time prerenal vs postrenal -Hypotensive on arrival -Minimal urine output the 2 days prior to arrival with just dribbles -Obstructive less likely given coy was placed in ED and minimal urine output drained -Renal US and ECHO pending -Renal dose meds -Hold antihypertensives and nephrotoxic meds -Improving renal function, Cr 3.91, BUN 61 -UOP since coy palced 1375ml -Deescalate abx as quickly as indicated -Will continue to trend renal function, urine output, and electrolytes -Neph consulted and appreciate their recs. (3) Urinary retention Current Visit: Yes Status: Acute Assessment and Plan: -2 days of minimal urine output. -Coy was placed in ED and minimal output -Improving TERESA currently with Cr 3.91 and BUN 61 -UOP 1375ml since coy placed -Will monitor (4) Pneumonia Current Visit: Yes Status: Suspected Assessment and Plan: -Suspected pneumonia on CXR in ED -CXR 10/03/18 Right upper lobe airspace disease possibly representing pneumonia -No other signs of infection, wbc 8.1, afebrile, baseline cough and sob not worsening -Was treated for pneumonia at [facility] last week. CXR findings could likely be post treatment imaging lag. -Resp pcr, lehionella, s pneumo antigen neg -Sputum culture/gram stain pending -BC x2 drawn 10/03/18 ngtd -Will continue to monitor (5) Afib Current Visit: No Status: Chronic Assessment and Plan: Hx of afib. -Anticoagulated on warfarin -Home meds not fully clear but appears from past records to be controlled with diltiazem, metoprolol, and amioderone. -HR stable in 70-80's without rate control meds -Home amio restarted (6) Diabetes mellitus type 2, insulin dependent Current Visit: Yes Status: Acute Assessment and Plan: -Glucose on arrival 301 -Past records indicate basal, ssi, and adjuncts -Glucose this morning 190 -A1C 8.9% -Will continue basal and ssi and hold adjuncts (7) CKD (chronic kidney disease) stage 3, GFR 30-59 ml/min Current Visit: Yes Status: Acute Assessment and Plan: Hx of CKD 3 -TERESA currently -Renal dosing meds, avoiding nephrotoxins -Neph consulted (8) CHF (congestive heart failure) Current Visit: Yes Status: Acute Assessment and Plan: Hx of CHF -Decreased systolic output may be cause of hypotension and TERESA -ECHO pending -Holding all diuretics (9) Morbid obesity with BMI of 60.0-69.9, adult Current Visit: Yes Status: Acute Assessment and Plan: Morbidly obese -BMI 66.5 -Should consider outpt consult for bariatric surgerical options DVT Prophylaxis: Warfarin, therapeutic INR - Time Spent with Patient Total time spent is greater than 50% in coordination of care (as documented) at patient's floor/unit and/or counseling patient: 25 - 35 minutes Plan of Care Discussed with: patient Internal Medicine: Result - Labs CBC & Chem 7: 10/04/18 04:27 10/04/18 04:27 Labs: Short CBC 10/03/18 10/04/18 Range/Units 14:42 04:27 WBC 9.4 8.1 (4.3-11.1) K/mcL Hgb 12.0 L 11.0 L (12.9-16.9) g/dL Hct 37.5 34.3 L (37.5-50.1) % Plt Count 224 195 (140-400) K/mcL Neutrophils # 6.7 5.8 (1.6-8.9) K/mcL BMP 10/03/18 10/04/18 14:42 04:27 Sodium 131 L 135 L Potassium 4.7 4.5 Chloride 95 L 100 Carbon Dioxide 26 26 BUN 63 H 61 H Creatinine 4.70 H 3.91 H Glucose 301 H 190 H Calcium 9.2 8.5 L Urine 10/03/18 Range/Units 14:00 Urine Color Yellow (Yellow) Urine Clarity Clear (Clear) Urine pH 5.0 (5.0-8.0) pH Units Ur Specific [place] 1.027 H (1.010-1.025) Urine Protein Negative (Neg-Trace) mg/dL Urine Glucose (UA) Normal (Normal) mg/dL - ABG Interpretation ABG results: PT/INR, D-dimer PT 27.5 Seconds (9.4-12.1) H 10/04/18 04:27 - Impressions Impressions Chest X-Ray 10/03/18 13:46 IMPRESSION: Right upper lobe airspace disease possibly representing pneumonia D/ / Azeem Root MD / Azeem Root MD Interpreting Provider: Azeem Root MD <Zahra Riley - Last Filed: 10/04/18 10:42> (1) Afib Qualifiers: Atrial fibrillation type: chronic Qualified Code(s): I48.2 - Chronic atrial fibrillation (2) Hypotension Qualifiers: Hypotension type: unspecified hypotension type Qualified Code(s): I95.9 - Hypotension, unspecified (3) Pneumonia Qualifiers: Pneumonia type: due to unspecified organism Laterality: right Lung location: upper lobe of lung Qualified Code(s): J18.1 - Lobar pneumonia, unspecified organism (9) CHF (congestive heart failure) Qualifiers: Heart failure type: unspecified Heart failure chronicity: chronic Qualified Code(s): I50.9 - Heart failure, unspecified <Andrea Nowak - Last Filed: 10/04/18 12:54> (1) Hypotension Qualifiers: Hypotension type: unspecified hypotension type Qualified Code(s): I95.9 - Hypotension, unspecified (4) Pneumonia Qualifiers: Pneumonia type: due to unspecified organism Laterality: right Lung location: upper lobe of lung Qualified Code(s): J18.1 - Lobar pneumonia, unspecified organism (5) Afib Qualifiers: Atrial fibrillation type: chronic Qualified Code(s): I48.2 - Chronic atrial fibrillation (8) CHF (congestive heart failure) Qualifiers: Heart failure type: unspecified Heart failure chronicity: chronic Qualified Code(s): I50.9 - Heart failure, unspecified
[2018-10-04] MEDS ORDERED: Perflutren Lipid Microsphere 1.3 ML in 0.9 % Sodium Chloride 8.7 ML IVP ONE (10:01)
[2018-10-04] MEDS: Insulin LISPRO 300 UNITS/3 ML VIAL SQ SCH ×4 (10:08→20:32)
[2018-10-04] MEDS: Tiotropium 18 MCG inhalation IH SCH (11:47)
[2018-10-04] MEDS: *HR* Amiodarone 200 MG TABLET PO SCH (12:37)
[2018-10-04] MEDS: Aspirin Enteric Coated 81 MG Tablet PO SCH (12:39)
--- NOTE | 2018-10-04 13:38 | Nephrology Consult Note ---
Date of Encounter: 10/04/18 Time of Encounter: 11:00 Assessment and Plan (1) Acute kidney injury Current Visit: Yes Status: Acute Acute kidney injury with oliguria on CKD stage III. Etiology is likely prerenal in setting of hypotension, however post renal obstruction is not excluded since the patient has had significantly decreased urination for 2 days. No history of difficulty urinating except when he had nephrolithiasis. Also, recent heavy antibiotic use at [facility] last week. Denied NSAID use. -Creatinine 3.91 (4.7 at admission) improved. Baseline 1.6 -GFR 16, improved from 13 (baseline 40 to 50s) -I&O: 3270/850 oliguria -urinalysis demonstrating positive leukocyte esterase and WBC 15 to 30 plan: -improved creatinine is encouraging that the patient's acute kidney injury will resolve. Continue to monitor urine output as it is low. Etiology is still to be determined however likely prerenal and possibly post renal. -renal ultrasound pending to evaluate for post renal obstruction -pending urine sodium, creatinine, eosinophils, uric acid, CPK -continue renal protective measures including avoid nephrotoxic agents, renal dose medications -monitor I&O -continue Paredes catheter (2) CKD (chronic kidney disease) stage 3, GFR 30-59 ml/min Current Visit: Yes Status: Acute Known history of CKD stage III following [address] Dr. To in the nephrology office. GFR baseline is 40s to 50s -management as above (3) Urinary retention Current Visit: Yes Status: Acute Patient has new urinary retention for 2 days. He has had difficulty urinating with only a few dribbles. No flank pain or dysuria, hematuria. Etiology may be TERESA post renal obstruction. -Management as above (4) Hypotension Current Visit: Yes Status: Acute Hypotension in setting of pneumonia. Systolic 70s at admission. Currently systolic 90s. -Patient is receiving fluids. Management per primary team Qualifiers: Hypotension type: unspecified hypotension type Qualified Code(s): I95.9 - Hypotension, unspecified (5) Anemia Current Visit: Yes Status: Acute Normocytic Anemia in setting of CKD. Etiology likely of chronic disease however cannot exclude iron deficiency hemoglobin 11 (baseline 12-13), hematocrit 34.3 MCV 99.4 (100.8 yesterday) no obvious active bleeding. Patient denied melena or hematochezia. Plan: -will order iron studies Qualifiers: Chronic kidney disease stage: stage 3 (moderate) Qualified Code(s): N18.3 - Chronic kidney disease, stage 3 (moderate); D63.1 - Anemia in chronic kidney disease (6) Diabetes mellitus type 2, insulin dependent Current Visit: Yes Status: Acute Known insulin-dependent diabetes. -Management per primary team History of Present Illness - Reason for Consult Consult date: 10/03/18 Acute Kidney Injury, Chronic Kidney Disease Requesting physician: Zahra Riley - Chief Complaint Difficulty urinating - History of Present Illness Mr. Duque is a 58 year old male with past medical history of atrial fibrillation, CHF, CKD stage III, diabetes who presented to the hospital complaining of difficulty urinating. Nephrology was consulted for TERESA on CDK management. Upon my examination the patient's is that bedside. Of note, upon admission he was noted to be hypotensive with systolic in the 70s. He stated that for 2 days he has had very little urine. He is a sensation that he has to urinate but only a few dribbles will come out. He has never had difficulty urinating before except when he had a kidney stone, however this does not feel like a kidney stone. He was instructed to go to the ER when at PT he was told he was hypotensive. He stated that last Thursday he was released from [facility] after having been admitted for 8 days for UTI and pneumonia and was taking lots of antibiotics. He was not discharged with antibiotics. He follows with Dr. To and the nephrology office. He denies recent NSAID use. He denies decreased oral intake of fluids. He denies fever, chills, nausea, vomiting, diarrhea, abdominal pain, hematuria, dysuria. Past Med Surg Social Fam HX - Past Medical History Attestation: Yes The following information was validated with the patient. Source: patient Medical history: non-contributory, atrial fibrillation, CHF, COPD, DVT, diabetes, GERD, hypertension, pulmonary embolus, renal disease Psychiatric history: no psych history - Past Surgical History Surgical History: non-contributory - Social History Smoking Status: Never smoker Smokeless Tobacco Status: No Alcohol use: none Drug use: none - Family History Mother Name: Cassandra duque Age: 83 Family Member Ethnicity: Non- Living Status: Still Living Hx Family Cardiac Disorders: Yes Hx Family Respiratory Disorders: No Hx Family Cancer: No Hx Family GI Disorders: No Hx Family Endocrine Disorder: Yes (DM) Hx Family Musculoskeletal Disorders: No Hx Family Neuromuscular Disorders: No Hx Family Neurologic Disorders: No Hx Family HEENT Disorders: No Medications and Allergies Fluticasone/Salmeterol [Advair 500-50 Diskus] 1 each IH Q12H 07/10/15 [History] Insulin DETEMIR [Levemir Flextouch] 40 unit SQ HS 07/10/15 [History] Sitagliptin Phosphate [Januvia] 50 mg PO QAM 07/10/15 [History] Albuterol Sulfate [Albuterol Inhaler] 1 puff IH Q6HR PRN 10/04/18 [History] Amiodarone HCl 200 mg PO DAILY 10/04/18 [History] Atorvastatin [Lipitor] 40 mg PO HS 10/04/18 [History] Docusate [Colace] 100 mg PO DAILY 10/04/18 [History] Dulaglutide [Trulicity] 0.75 mg SQ QWEEK 10/04/18 [History] Furosemide [Lasix] 60 mg PO BID 10/04/18 [History] Gabapentin [Neurontin] 300 - 600 mg PO HS 10/04/18 [History] Glimepiride [Amaryl] 4 mg PO BID 10/04/18 [History] HYDROcodone/Acet 5/325 mg [[place] 5-325 mg] 1 tab PO Q6H PRN 10/04/18 [History] Insulin DETEMIR [Levemir Flextouch] 40 unit SQ HS 10/04/18 [History] Isosorbide MONOnitrate (24 HR) [Imdur] 30 mg PO DAILY 10/04/18 [History] Lisinopril [Zestril] 5 mg PO DAILY 10/04/18 [History] Metoprolol XL (24 HR) Succ [Toprol XL] 25 mg PO BID 10/04/18 [History] Pantoprazole Sodium [Protonix] 40 mg PO DAILY 10/04/18 [History] Potassium Chloride [Klor-Con 10] 10 meq PO DAILY 10/04/18 [History] Spironolactone [Aldactone] 50 mg PO BID 10/04/18 [History] Tiotropium [Spiriva] 1 puff IH DAILY 10/04/18 [History] Tizanidine HCl [Zanaflex] 4 mg PO TID PRN 10/04/18 [History] Warfarin [Coumadin] 5 mg PO AD 10/04/18 [History] metOLazone [Zaroxolyn] 2.5 mg PO DAILY 10/04/18 [History] Allergy/AdvReac Type Severity Reaction Status Date / Time Perflutren [From Definity] AdvReac Nausea Verified 10/04/18 11:23 Review of Systems Constitutional: no chills, no fatigue, no fever(s), no headache(s), no lethargy Nose, mouth and throat: no headache(s) Cardiovascular: no chest pain, no edema, no palpitations Respiratory: no cough, no excessive phlegm production Gastrointestinal: no abdominal pain, no diarrhea, no melena, no nausea, no vomiting Genitourinary Male: change in urinary stream (Decreased urination), difficulty urinating, no dysuria, no flank pain, no hematuria, no testicular pain, no urinary frequency Neurological: no dizziness Psychiatric: no confusion Endocrine: no fatigue Exam - Vital Signs Vital signs: Initial Vital Signs Temp Pulse Resp BP Pulse Ox 97.4 F L 75 20 75/53 96 10/03/18 13:12 10/03/18 13:12 10/03/18 13:12 10/03/18 13:12 10/03/18 13:12 Vital Signs - Last 8 Hours Temp Pulse Resp BP Pulse Ox 10/04/18 12:19 98.2 F 103 18 124/94 99 10/04/18 12:00 97.7 F 76 18 95/49 97 10/04/18 07:18 97.9 F 80 20 96/50 98 Intake and Output 10/03/18 10/04/18 10/04/18 23:59 07:59 15:59 Intake Total 3270 / 3270 100 / 100 Output Total 850 / 850 375 / 375 300 / 300 Balance 2420 / 2420 -275 / -275 -300 / -300 Intake: IV Fluids 3270 / 3270 100 / 100 0.9 % Sodium Chloride 1,000 ML 2000 / 2000 @ 3750 mls/hr IVC .Q16M ONE Rx# :[id number] 0.9 % Sodium Chloride 500 ML @ 500 / 500 999 mls/hr IVC .Q31M ONE Rx#: [id number] Maxipime 2,000 MG In Water for 20 / 20 inj. (sterile) 20 ML @ 300 mls/ hr IVP ONCE ONE Rx#:[id number] Zithromax 500 mg In Dextrose 5% 250 / 250 250 ML @ 252 mls/hr IVPB ONCE ONE Rx#:[id number] Zosyn 3.375 GM In 0.9 % Sodium 100 / 100 Chloride (Mini-Bag +) 100 ML @ 25 mls/hr IVPB Q8HR RIVERA Rx#: [id number] Vancocin 2,000 MG In 0.9 % 500 / 500 Sodium Chloride 500 ML @ 250 mls/hr IVPB ONCE ONE Rx#: [id number] Oral 0 / 0 0 / 0 Output: Urine 50 / 50 Catheter 850 / 850 325 / 325 300 / 300 Other: Meal Breakfast Percent of Meal Consumed 10% Weight 235.2 kg 235.2 kg Blood Glucose* 190 121 Patient Weight 10/04/18 23:59 Weight 235.2 kg - General Appearance Exam: Gen.: Vitals noted. No acute distress. AAOx3 HEENT: oropharynx clear, Normocephalic, atraumatic Neck: Supple. No adenopathy. Cardiac: RRR, no murmur, +S1/S2 Pulmonary: CTA bilaterally, no wheezes, rales or rhonchi, equal chest expansion Abdomen: soft, nontender, Bowel sounds noted, no guarding MSK: ROM intact, no joint swelling noted Extremities: BLE edema, nontender calf, no cyanosis or clubbing Neuro: A&Ox3, moves all extremities, no focal deficits Psych: Appropriate mood and behavior Results - Lab Results 10/04/18 04:27 10/04/18 04:27 Most recent lab results Calcium 8.5 mg/dL (8.6-10.3) L 10/04/18 04:27 Magnesium 1.9 mg/dL (1.6-2.6) 10/04/18 04:27 Consult Discharge Plan - Plan Referrals: NONE,PCP [Primary Care Provider] -
[2018-10-04] MEDS ORDERED: Cefepime HCl 1,000 MG in Water for inj. (sterile) 20 ML 10 ML IVPB SCH (15:45)
[2018-10-04] MEDS ORDERED: *HR* Warfarin 2.5 MG TABLET PO ONE (18:00)
[2018-10-04] MEDS ORDERED: Warfarin perPT PO PRN (18:00)
[2018-10-04] MEDS: Budesonide/Formoterol 160/4.5 1 PUFF INH IH SCH (19:43)
[2018-10-04] MEDS: Insulin DETEMIR 100 UNIT/ML X5UNITS SQ SCH (20:23)
[2018-10-05] MEDS: Piperacillin/Tazobactam 3.375 GM in 0.9 % Sodium Chloride Mini Bag 100 ML IVPB SCH ×4 (01:15→23:38)
[2018-10-05 04:03] LABS: Basophils % 0.4 %; Eosinophils # 0.3 K/mcL (0.0-0.6); Eosinophils % 6.5 %; Hematocrit 34.3 % (37.5-50.1); Hemoglobin 10.8 g/dL (12.9-16.9); Immature Granulocytes % 0.8 % (0-4); Lymphocytes # 1.2 K/mcL (0.6-4.6); Lymphocytes % 22.7 %; Mean Corpuscular HGB Conc 31.5 g/dL (31.6-35.5); Mean Corpuscular Hemoglobin 31.8 pg (28.0-33.3); Mean Corpuscular Volume 100.9 fL (83.0-100.0); Mean Platelet Volume 10.9 fL (9.4-12.4); Monocytes # 0.5 K/mcL (0.0-1.3); Monocytes % 10.1 %; Platelet Count 167 K/mcL (140-400); Red Cell Distribution Width 15.4 % (11.5-14.5); Segmented Neutrophils % 59.5 %
[2018-10-05 04:13] LABS: INR 2.2; Prothrombin Time 25.3 Seconds (9.4-12.1)
[2018-10-05 04:27] LABS: Calcium 8.4 mg/dL (8.6-10.3); Potassium 4.6 mEq/L (3.5-5.1)
[2018-10-05 04:28] LABS: % Iron Saturation 21 % (20-55); Iron 67 mcg/dL (65-175); Transferrin 230 mg/dL (203-362)
[2018-10-05 04:47] LABS: Ferritin 247 ng/mL (20-250)
--- NOTE | 2018-10-05 06:27 | Internal Med Progress Note ---
<Andrea Nowak - Last Filed: 10/05/18 11:53> Hospitalist Progress Note - Encounter Date of Encounter: 10/05/18 Time of Encounter: 07:10 - Subjective Interval History: Laying comfortably in bed. Says he is feeling better than yesterday. Did not tolerate BiPAP overnight cause of face mask, uses nasal mask at home. He was given smaller face mask but still didn't tolerate the mask. He has no complaints. [facility] records requested yesterday did not get faxed. He denies subjective fever/chills, blurry vision, diplopia, dizziness/lightheadedness, chest pain, worse productive cough/sob from baseline, pleuritic chest pain, abdominal pain, back pain, N/V. - Exam Vitals: Temp Pulse Resp BP Pulse Ox 97.7 F 83 16 98/58 96 10/05/18 04:45 10/05/18 04:45 10/05/18 04:45 10/05/18 04:45 10/05/18 04:45 Exam: General: Awake, alert, morbidly obese, no acute distress or signs of toxicity Head: Atraumatic, normocephalic Eye: Pupils equal and round, EOMi, no scleral icterus ENT: mucus membranes moist Chest: Symmetric chest rise, non tender to palpation Cardiac: RRR, distant but present S1/S2, no murmurs, rubs, gallops appreciated, radial pulses 2+ bilat, trace edema Pulmonary: Normal resp effort, decreased air movement, diminished throughout, no wheezes, rhonchi, rales appreciated Abdominal: Soft, tender to palpation RUQ/LUQ, non distended, no voluntary guarding, rebound, or rigidity. Bruising on abdomen Back: Non tender, no CVA tenderness Extremities: No clubbing, cyanosis Neuro: CN's grossly intact, no focal deficits Psych: normal affect Integumentary: [place], warm, dry, intact - Assessment and Plan (1) Hypotension Current Visit: Yes Status: Acute Assessment and Plan: -Arrival to ED RR 20, BP 75/53, TERESA, and suspected pneumonia on ED -CXR 10/03/18 Right upper lobe airspace disease possibly representing pneumonia -I do not think he is septic at this time given no signs of infection and pneumonia call on cxr appears soft to me and likely residual imaging lag from recent pneumonia treatment. -Will treat as sepsis till proven otherwise but does not meet criteria at this time. -BP appears to initially respond to fluid bolus in ED but all repeat readings since have been lower. Likely cuff placement discrepancy. -WBC 9.4, afebrile on arrival. -Empiric vanc, cefepime, and zosyn renally dosed given Cr 4.7 on arrival. -BC x2 drawn 10/03/18 ngtd -Sputum culture/gram stain pending -Urine culture pending, UA not indicative of UTI -Resp pcr, legionella, s pneumo, and lactic normal. -WBC lower today, 5.1, afebrile -Will request records again from [facility] visit last week as they did not come with yesterday's request. -Will deescalate abx today when [facility] records arrive -BP overnight improving to 100's/50's. -Most recent BP 105/54 -At this point I still do not think his hypotension was sepsis related and more likely he has been over medicated as his pressures have been improving each day while holding all antihypertensives and diuretics since arrival. -Continues to have no signs of infection. -Will continue to monitor (2) Acute kidney injury Current Visit: Yes Status: Acute Assessment and Plan: -Cr 4.7, BUN 63 on arrival -Etiology unknown at this time prerenal vs postrenal -Hypotensive on arrival -Minimal urine output the 2 days prior to arrival with just dribbles -Obstructive less likely given coy was placed in ED and minimal urine output drained -Renal US Minimal right-sided hydronephrosis. Nonobstructing right renal calculus. -ECHO 10/04/18, EF 55%, atypical septal motion. mild left ventricular diastolic d ysfunction, mild tr, mild ph -Renal dose meds -Hold antihypertensives and nephrotoxic meds -Improving renal function, Cr 2.46, BUN 55 -UOP since coy palced 3625ml, with 1200 so far today. -Deescalate abx as quickly as indicated -Will continue to trend renal function, urine output, and electrolytes -Neph consulted and appreciate their recs. (3) Pneumonia Current Visit: Yes Status: Suspected Assessment and Plan: -Suspected pneumonia on CXR in ED -CXR 10/03/18 Right upper lobe airspace disease possibly representing pneumonia -No other signs of infection, wbc 8.1, afebrile, baseline cough and sob not worsening -Was treated for pneumonia at [facility] last week. CXR findings could likely be post treatment imaging lag. -Resp pcr, lehionella, s pneumo antigen neg -Sputum culture/gram stain pending -BC x2 drawn 10/03/18 ngtd -Will continue to monitor (4) Afib Current Visit: No Status: Chronic Assessment and Plan: Hx of afib. -Anticoagulated on warfarin -Home meds not fully clear but appears from past records to be controlled with diltiazem, metoprolol, and amioderone. -HR stable in 70-80's without rate control meds, 1 reading 103 overnight. -Home amio restarted 10/04/18 (5) Urinary retention Current Visit: Yes Status: Acute Assessment and Plan: -2 days of minimal urine output. -Coy was placed in ED and minimal output -Improving TERESA currently with Cr 2.46 and BUN 55 -UOP 1200ml sso far today. adequate uop with coy -Will monitor (6) Diabetes mellitus type 2, insulin dependent Current Visit: Yes Status: Acute Assessment and Plan: -Glucose on arrival 301 -Past records indicate basal, ssi, and adjuncts -Glucose this morning 198 -A1C 8.9% -Will continue basal and ssi and hold adjuncts (7) CKD (chronic kidney disease) stage 3, GFR 30-59 ml/min Current Visit: Yes Status: Acute Assessment and Plan: Hx of CKD 3 -TERESA currently -Renal dosing meds, avoiding nephrotoxins -Neph consulted (8) Morbid obesity with BMI of 60.0-69.9, adult Current Visit: Yes Status: Acute Assessment and Plan: Morbidly obese -BMI 66.5 -Should consider outpt consult for bariatric surgerical options (9) CHF (congestive heart failure) Current Visit: Yes Status: Acute Assessment and Plan: Hx of CHF -Decreased systolic output may be cause of hypotension and TERESA -ECHO 10/04/18, EF 55%, atypical septal motion. mild left ventricular diastolic dysfunction, mild tr, mild ph -Holding all diuretics DVT Prophylaxis: Warfarin, INR therapeutic - Time Spent with Patient Total time spent is greater than 50% in coordination of care (as documented) at patient's floor/unit and/or counseling patient: 25 - 35 minutes Plan of Care Discussed with: patient Internal Medicine: Result - Labs CBC & Chem 7: 10/05/18 03:41 10/05/18 03:41 Labs: Short CBC 10/05/18 Range/Units 03:41 WBC 5.1 (4.3-11.1) K/mcL Hgb 10.8 L (12.9-16.9) g/dL Hct 34.3 L (37.5-50.1) % Plt Count 167 (140-400) K/mcL Neutrophils # 3.0 (1.6-8.9) K/mcL BMP 10/05/18 03:41 Sodium 136 Potassium 4.6 Chloride 104 Carbon Dioxide 24 BUN 55 H Creatinine 2.46 H Glucose 198 H Calcium 8.4 L - ABG Interpretation ABG results: PT/INR, D-dimer PT 25.3 Seconds (9.4-12.1) H 10/05/18 03:41 - Impressions Impressions Retroperitoneum Ultrasound 10/04/18 15:30 IMPRESSION: Minimal right-sided hydronephrosis. Nonobstructing right renal calculus. D/ / 10/04/2018 16:54:09 Shady Layton MD / nabeel Interpreting Provider: Shady Layton MD Echocardiogram 10/04/18 16:45 Impressions: LVEF 55%. Atypical septal motion. Mild left ventricular diastolic dysfunction. LV chamber size is mildly dilated. RV size is not optimally visualized. Function is normal by doppler. Mild tricuspid regurgitation. Mild pulmonary hypertension. Left Ventricular Wall Motion: Rest Echo Findings All wall segments showed normal motion. Findings: Study Quality * Technically challenging due to body habitus. ECG Findings * Normal sinus rhythm. Left Ventricle * LVEF 55%. * Atypical septal motion. * Mild left ventricular diastolic dysfunction. * LV chamber size is mildly dilated. Right Ventricle * RV size is not optimally visualized. Function is normal by doppler. Left Atrium * Normal left atrial size. Right Atrium * Normal right atrial size. Aortic Valve * No aortic regurgitation. * Aortic valve not well visualized. * No aortic stenosis. Mitral Valve * No mitral regurgitation. * Normal mitral valve structure. * No mitral stenosis. Tricuspid Valve * Tricuspid valve not well visualized. * Mild tricuspid regurgitation. * Estimated RA pressure is 8 mmHg. * Estimated RVSP is 41 mmHg. * Mild pulmonary hypertension. Pulmonic Valve * Pulmonic valve is not well visualized. * No pulmonic stenosis. * No pulmonic regurgitation. Pulmonary Artery * Pulmonary artery not well visualized. Aorta * Normally sized aortic root. Pericardium * There is no pericardial effusion present. Interatrial Septum * No evidence of PFO by color Doppler. IVC * The IVC is not dilated. * < 50% respiratory change. Consult Discharge Plan - Plan Referrals: NONE,PCP [Primary Care Provider] - <Carlos Meza - Last Filed: 10/05/18 15:44> Hospitalist Progress Note - Encounter Date of Encounter: 10/05/18 - Exam Vitals: Temp Pulse Resp BP Pulse Ox 97.8 F 74 16 118/50 100 10/05/18 10:57 10/05/18 10:57 10/05/18 11:20 10/05/18 10:57 10/05/18 11:20 - Assessment and Plan (1) Renal failure Current Visit: Yes Status: Suspected (2) Hypotension Current Visit: Yes Status: Suspected (3) Pneumonia Current Visit: Yes Status: Suspected (4) Afib Current Visit: No Status: Chronic (5) Acute kidney injury Current Visit: Yes Status: Acute (6) Urinary retention Current Visit: Yes Status: Acute (7) Morbid obesity with BMI of 60.0-69.9, adult Current Visit: Yes Status: Acute (8) Diabetes mellitus type 2, insulin dependent Current Visit: Yes Status: Acute (9) CKD (chronic kidney disease) stage 3, GFR 30-59 ml/min Current Visit: Yes Status: Acute (10) CHF (congestive heart failure) Current Visit: Yes Status: Acute - Time Spent with Patient Total time spent is greater than 50% in coordination of care (as documented) at patient's floor/unit and/or counseling patient: Internal Medicine: Result - Labs CBC & Chem 7: 10/05/18 03:41 10/05/18 03:41 Labs: Short CBC 10/05/18 Range/Units 03:41 WBC 5.1 (4.3-11.1) K/mcL Hgb 10.8 L (12.9-16.9) g/dL Hct 34.3 L (37.5-50.1) % Plt Count 167 (140-400) K/mcL Neutrophils # 3.0 (1.6-8.9) K/mcL BMP 10/05/18 03:41 Sodium 136 Potassium 4.6 Chloride 104 Carbon Dioxide 24 BUN 55 H Creatinine 2.46 H Glucose 198 H Calcium 8.4 L - ABG Interpretation ABG results: PT/INR, D-dimer PT 25.3 Seconds (9.4-12.1) H 10/05/18 03:41 - Impressions Impressions Retroperitoneum Ultrasound 10/04/18 15:30 IMPRESSION: Minimal right-sided hydronephrosis. Nonobstructing right renal calculus. D/ / 10/04/2018 16:54:09 Shady Layton MD / nabeel Interpreting Provider: Shady Layton MD Chest X-Ray 10/05/18 11:42 IMPRESSION: 1. Decreased right upper lobe airspace disease 2. Stable cardiomegaly with pulmonary vascular congestion D/ / Azeem Root MD / Azeem Root MD Interpreting Provider: Azeem Root MD - Attending Attestation I examined this patient and my medical decision-making was reviewed with the Resident Physician on 10/05/18. I agree with the documented findings, disposition and treatment plan as described except to the extent set forth below. Mr Llanes is currently admitted for hypotension most likely due to volume dep letion. Pt has evidence of pneumonia. He remains moderate to high risk due to potential for worsening clinical status. Mr Llanes is resting comfortably. No fever or chills at this time. Some cough - no purulent sputum. No GI issues. Repeat CXR shows resolving pneumonia RUL area. No CP at this time. Exam Alert. Comfortable Mucus membranes dry Heart reg and distant No wheeze heard Abd soft and nontender Moves all extremities I/P 1. Pneumonia - most likely gram neg as recently hospitalized. ? aspiration. Consider speech eval. Continue Zosyn and Vanc. MRSA swab. 2. Morbid obesity 3. Recent bacteremia - treated at [facility]. Further diagnoses and plan as above. <Andrea Nowak - Last Filed: 10/05/18 11:53> (1) Hypotension Qualifiers: Hypotension type: unspecified hypotension type Qualified Code(s): I95.9 - Hypotension, unspecified (3) Pneumonia Qualifiers: Pneumonia type: due to unspecified organism Laterality: right Lung location: upper lobe of lung Qualified Code(s): J18.1 - Lobar pneumonia, unspecified organism (4) Afib Qualifiers: Atrial fibrillation type: chronic Qualified Code(s): I48.2 - Chronic atrial fibrillation (9) CHF (congestive heart failure) Qualifiers: Heart failure type: unspecified Heart failure chronicity: chronic Qualified Code(s): I50.9 - Heart failure, unspecified <Carlos Meza - Last Filed: 10/05/18 15:44> (1) Renal failure Qualifiers: Renal failure chronicity: acute Acute renal failure type: with acute tubular necrosis Qualified Code(s): N17.0 - Acute kidney failure with tubular necrosis (2) Hypotension Qualifiers: Hypotension type: hypotension due to drug Qualified Code(s): I95.2 - Hypotension due to drugs (3) Pneumonia Qualifiers: Pneumonia type: due to other aerobic Gram-negative bacteria Laterality: right Lung location: upper lobe of lung Qualified Code(s): J15.6 - Pneumonia due to other Gram-negative bacteria (4) Afib Qualifiers: Atrial fibrillation type: chronic Qualified Code(s): I48.2 - Chronic atrial fibrillation (10) CHF (congestive heart failure) Qualifiers: Heart failure type: diastolic Heart failure chronicity: chronic Qualified Code(s): I50.32 - Chronic diastolic (congestive) heart failure
[2018-10-05] MEDS: *HR* Amiodarone 200 MG TABLET PO SCH (08:51)
[2018-10-05] MEDS: Aspirin Enteric Coated 81 MG Tablet PO SCH (08:51)
[2018-10-05] MEDS: Insulin LISPRO 300 UNITS/3 ML VIAL SQ SCH ×4 (08:52→20:35)
[2018-10-05] MEDS: 0.9 % Sodium Chloride 1,000 ML IVC SCH ×2 (10:00→23:38)
[2018-10-05] MEDS: Budesonide/Formoterol 160/4.5 1 PUFF INH IH SCH ×2 (11:20→20:38)
[2018-10-05] MEDS: Tiotropium 18 MCG inhalation IH SCH (11:22)
[2018-10-05] MEDS: Ondansetron 4 MG/2 ML VIAL IVP PRN (12:55)
[2018-10-05] MEDS ORDERED: *HR* Warfarin 5 MG TABLET PO ONE (18:00)
[2018-10-05] MEDS: Insulin DETEMIR 100 UNIT/ML X5UNITS SQ SCH (20:34)
--- NOTE | 2018-10-05 23:52 | Nephrology Progress Note ---
Date of Encounter: 10/05/18 Time of Encounter: 12:00 - Assessment and Plan (1) Acute kidney injury Current Visit: Yes Status: Acute SCr improving at 2.46, GFR 27, continue IVF Continue to avoid nephrotoxins if possible UOp great at 1575cc in the past 24hrs US of kidney showed minimal right hydronephrosis and calculi, nonobs (2) CKD (chronic kidney disease) stage 3, GFR 30-59 ml/min Current Visit: Yes Status: Acute Baseline GFR in the 40-50s (3) Anemia Current Visit: Yes Status: Acute Hgb noted at 10.8, will monitor for now Qualifiers: Chronic kidney disease stage: stage 3 (moderate) Qualified Code(s): N18.3 - Chronic kidney disease, stage 3 (moderate); D63.1 - Anemia in chronic kidney disease (4) Pneumonia Current Visit: Yes Status: Acute Per primary team Qualifiers: Pneumonia type: due to unspecified organism Lung location: upper lobe of lung Qualified Code(s): J18.1 - Lobar pneumonia, unspecified organism Subjective Interval history: Pt seen and examined with mother at bedside complaining of fatigue due to lack of sleep from numerous interruptions. Objective - Vital Signs Vital signs: Vital Signs Temp Pulse Resp BP Pulse Ox 10/05/18 20:41 98.3 F 81 15 118/54 96 10/05/18 15:39 97.9 F 86 16 105/57 96 10/05/18 11:20 16 100 10/05/18 10:57 97.8 F 74 18 118/50 100 10/05/18 07:37 97.9 F 90 20 105/54 94 10/05/18 04:45 97.7 F 83 16 98/58 96 10/05/18 00:10 19 103/51 97 Intake and Output 10/05/18 10/05/18 10/05/18 07:59 15:59 23:59 Intake Total 100 / 100 1100 / 1100 3170 / 3170 Output Total 1200 / 1200 500 / 500 1300 / 1300 Balance -1100 / -1100 600 / 600 1870 / 1870 Intake: IV Fluids 100 / 100 1100 / 1100 1610 / 1610 0.9 % Sodium Chloride 1,000 ML 1000 / 1000 1000 / 1000 @ 75 mls/hr IVC .[id number] [facility] Rx #:[id number] Maxipime 1,000 MG In Water for inj. (sterile) 10 ML @ 300 mls/ hr IVPB Q24H [facility] Rx#:[id number] Zosyn 3.375 GM In 0.9 % Sodium 100 / 100 100 / 100 100 / 100 Chloride (Mini-Bag +) 100 ML @ 25 mls/hr IVPB Q8HR [facility] Rx#: [id number] Oral 0 / 0 960 / 960 Free Water 600 / 600 Output: Catheter 1200 / 1200 500 / 500 1300 / 1300 Other: Meal Lunch Percent of Meal Consumed 90% Blood Glucose* 175 201 208 - General Appearance General appearance: Present: well-developed, well-nourished EENT: Present: ATNC, mucous membranes moist Neck: Present: no JVD, supple Respiratory: Present: clear (ant bilat) Cardiology: Present: edema, normal S1, normal S2 Gastrointestinal: Present: no tenderness, no guarding Integumentary: Present: warm and dry Neurologic: Present: no focal deficit Musculoskeletal: Present: no deformities Psychiatric: Present: mood/affect appropriate - Lab 10/05/18 03:41 10/05/18 03:41 Most recent lab results Calcium 8.4 mg/dL (8.6-10.3) L 10/05/18 03:41 Magnesium 1.9 mg/dL (1.6-2.6) 10/04/18 04:27 Urine Creatinine 86 mg/dL 10/04/18 01:15 Urine Sodium 44.6 mEq/L 10/04/18 01:15 Consult Discharge Plan - Plan Referrals: NONE,PCP [Primary Care Provider] -
[2018-10-06 04:57] LABS: Basophils % 0.5 %; Eosinophils # 0.3 K/mcL (0.0-0.6); Hematocrit 34.7 % (37.5-50.1); Immature Granulocytes % 0.7 % (0-4); Lymphocytes # 1.1 K/mcL (0.6-4.6); Lymphocytes % 24.4 %; Mean Corpuscular HGB Conc 31.7 g/dL (31.6-35.5); Mean Corpuscular Hemoglobin 32.3 pg (28.0-33.3); Mean Corpuscular Volume 101.8 fL (83.0-100.0); Monocytes # 0.5 K/mcL (0.0-1.3); Monocytes % 11.6 %; Neutrophils # 2.4 K/mcL (1.6-8.9); Platelet Count 171 K/mcL (140-400); Red Blood Count 3.41 M/mcL (4.19-5.50); Red Cell Distribution Width 15.5 % (11.5-14.5); Segmented Neutrophils % 55.8 %
[2018-10-06 05:05] LABS: INR 2.3; Prothrombin Time 25.7 Seconds (9.4-12.1)
[2018-10-06 05:16] LABS: Calcium 8.6 mg/dL (8.6-10.3); Potassium 4.9 mEq/L (3.5-5.1)
--- NOTE | 2018-10-06 06:21 | Internal Med Progress Note ---
<NowakAndrea Briseyda - Last Filed: 10/06/18 12:04> Hospitalist Progress Note - Encounter Date of Encounter: 10/06/18 Time of Encounter: 06:50 - Subjective Interval History: Laying comfortably in bed. Says he is feeling better than yesterday. Refused BiPAP overnight cause of face mask, uses nasal cushions at home. He has no complaints. [facility] records arrived yesterday. He denies subjective fever/chills, blurry vision, diplopia, dizziness/lightheadedness, chest pain, worse productive cough/sob from baseline, pleuritic chest pain, abdominal pain, back pain, N/V. - Exam Vitals: Temp Pulse Resp BP Pulse Ox 97.4 F L 86 16 121/69 95 10/06/18 04:18 10/06/18 04:18 10/06/18 04:18 10/06/18 04:18 10/06/18 04:18 Exam: General: Awake, alert, morbidly obese, no acute distress or signs of toxicity Head: Atraumatic, normocephalic Eye: Pupils equal and round, EOMi, no scleral icterus ENT: mucus membranes moist Chest: Symmetric chest rise, non tender to palpation Cardiac: RRR, distant but present S1/S2, no murmurs, rubs, gallops appreciated, radial pulses 2+ bilat, trace edema Pulmonary: Normal resp effort, decreased air movement, diminished throughout, no wheezes, rhonchi, rales appreciated Abdominal: Soft, tender to palpation RUQ/LUQ, non distended, no voluntary guarding, rebound, or rigidity. Bruising on abdomen Back: Non tender, no CVA tenderness Extremities: No clubbing, cyanosis Neuro: CN's grossly intact, no focal deficits Psych: normal affect Integumentary: [place], warm, dry, intact - Assessment and Plan (1) Hypotension Current Visit: Yes Status: Suspected Assessment and Plan: -Arrival to ED RR 20, BP 75/53, TERESA, and suspected pneumonia on ED -CXR 10/03/18 Right upper lobe airspace disease possibly representing pneumonia -I do not think he is septic at this time given no signs of infection and pneumonia call on cxr appears soft to me and likely residual imaging lag from recent pneumonia treatment. -Will treat as sepsis till proven otherwise but does not meet criteria at this time. -BP appears to initially respond to fluid bolus in ED but all repeat readings since have been lower. Likely cuff placement discrepancy. -WBC 9.4, afebrile on arrival. -Empiric vanc, cefepime, and zosyn renally dosed given Cr 4.7 on arrival. -BC x2 drawn 10/03/18 ngtd -Sputum culture/gram stain pending -Urine culture neg, UA not indicative of UTI -Resp pcr, legionella, s pneumo, and lactic normal. -WBC lower today, 4.3, afebrile -Deescalate abx 10/05/18 when [facility] records arrived, vanc, cefepime dc'd -BP overnight improving to 100-120's/50's. -Most recent BP 105/54 -At this point I still do not think his hypotension was sepsis related and more likely he has been over medicated as his pressures have been improving each day while holding all antihypertensives and diuretics since arrival. -Continues to have no signs of infection. -Cxr 10/05/18 Decreased right upper lobe airspace disease. Stable cardiomegaly with pulmonary vascular congestion -Will continue to monitor (2) Acute kidney injury Current Visit: Yes Status: Acute Assessment and Plan: -Cr 4.7, BUN 63 on arrival -Etiology unknown at this time prerenal vs postrenal -Hypotensive on arrival -Minimal urine output the 2 days prior to arrival with just dribbles -Obstructive less likely given coy was placed in ED and minimal urine output drained -Renal US Minimal right-sided hydronephrosis. Nonobstructing right renal calculus. -ECHO 10/04/18, EF 55%, atypical septal motion. mild left ventricular diastolic dysfunction, mild tr, mild ph -Renal dose meds -Hold antihypertensives and nephrotoxic meds -Improving renal function, Cr 1.62, BUN 35 -UOP with coy 3000ml last 24 hrs -Deescalated abx yst, vanc, cefepime dc'd -Will continue to trend renal function, urine output, and electrolytes -Neph on board and appreciate their recs. Code(s): N17.9 - Acute kidney failure, unspecified SNOMED Code(s): 85057067 (3) Pneumonia Current Visit: Yes Status: Suspected Assessment and Plan: -Suspected pneumonia on CXR in ED -CXR 10/03/18 Right upper lobe airspace disease possibly representing pneumonia -No other signs of infection, wbc 4.3, afebrile, baseline cough and sob not worsening -Was treated for pneumonia at [facility] last week. CXR findings could likely be post treatment imaging lag. -Resp pcr, lehionella, s pneumo antigen neg -Sputum culture/gram stain pending -BC x2 drawn 10/03/18 ngtd -Cxr 10/05/18 Decreased right upper lobe airspace disease. Stable cardiomegaly with pulmonary vascular congestion -Abx deescalated, vanc, cefepime dc'd -Will continue to monitor (4) Urinary retention Current Visit: Yes Status: Acute Assessment and Plan: -2 days of minimal urine output. -Coy was placed in ED and minimal output -Improving TERESA currently with Cr 1.62 and BUN 35 -UOP 3000ml last 24 hrs. Adequate uop with coy -Will monitor (5) Afib Current Visit: No Status: Chronic Assessment and Plan: Hx of afib. -Anticoagulated on warfarin -Home meds not fully clear but appears from past records to be controlled with diltiazem, metoprolol, and amioderone. -HR stable in 70-80's without rate control meds, 1 reading 103 overnight. -Home amio restarted 10/04/18 (6) Diabetes mellitus type 2, insulin dependent Current Visit: Yes Status: Acute Assessment and Plan: -Glucose on arrival 301 -Past records indicate basal, ssi, and adjuncts -Glucose this morning higher at 277 -A1C 8.9% -Will continue basal and ssi and hold adjuncts (7) CKD (chronic kidney disease) stage 3, GFR 30-59 ml/min Current Visit: Yes Status: Acute Assessment and Plan: Hx of CKD 3 -TERESA currently -Renal dosing meds, avoiding nephrotoxins -Neph consulted (8) Morbid obesity with BMI of 60.0-69.9, adult Current Visit: Yes Status: Acute Assessment and Plan: Morbidly obese -BMI 66.5 -Should consider outpt consult for bariatric surgerical options (9) CHF (congestive heart failure) Current Visit: Yes Status: Acute Assessment and Plan: Hx of CHF -Decreased systolic output may be cause of hypotension and TERESA -ECHO 10/04/18, EF 55%, atypical septal motion. mild left ventricular diastolic dysfunction, mild tr, mild ph -Holding all diuretics DVT Prophylaxis: warfarin, INR therapeutic - Time Spent with Patient Total time spent is greater than 50% in coordination of care (as documented) at patient's floor/unit and/or counseling patient: 25 - 35 minutes Plan of Care Discussed with: patient Internal Medicine: Result - Labs CBC & Chem 7: 10/06/18 04:43 10/06/18 04:43 Labs: Short CBC 10/06/18 Range/Units 04:43 WBC 4.3 (4.3-11.1) K/mcL Hgb 11.0 L (12.9-16.9) g/dL Hct 34.7 L (37.5-50.1) % Plt Count 171 (140-400) K/mcL Neutrophils # 2.4 (1.6-8.9) K/mcL BMP 10/06/18 04:43 Sodium 136 Potassium 4.9 Chloride 106 Carbon Dioxide 25 BUN 35 H Creatinine 1.62 H Glucose 277 H Calcium 8.6 - ABG Interpretation ABG results: PT/INR, D-dimer PT 25.7 Seconds (9.4-12.1) H 10/06/18 04:43 - Impressions Impressions Chest X-Ray 10/05/18 11:42 IMPRESSION: 1. Decreased right upper lobe airspace disease 2. Stable cardiomegaly with pulmonary vascular congestion D/ / Azeem Root MD / Azeem Root MD Interpreting Provider: Azeem Root MD Consult Discharge Plan - Plan Referrals: NONE,PCP [Primary Care Provider] - <Carlos Meza - Last Filed: 10/06/18 15:52> Hospitalist Progress Note - Encounter Date of Encounter: 10/06/18 - Exam Vitals: Temp Pulse Resp BP Pulse Ox 97.6 F 83 22 118/55 93 10/06/18 10:54 10/06/18 10:54 10/06/18 10:54 10/06/18 10:54 10/06/18 10:54 - Assessment and Plan (1) Afib Current Visit: No Status: Chronic (2) Hypotension Current Visit: Yes Status: Resolved (3) Pneumonia Current Visit: Yes Status: Suspected (4) Acute kidney injury Current Visit: Yes Status: Acute Code(s): N17.9 - Acute kidney failure, unspecified SNOMED Code(s): 43123624 (5) Urinary retention Current Visit: Yes Status: Acute (6) Morbid obesity with BMI of 60.0-69.9, adult Current Visit: Yes Status: Acute (7) Diabetes mellitus type 2, insulin dependent Current Visit: Yes Status: Acute (8) CKD (chronic kidney disease) stage 3, GFR 30-59 ml/min Current Visit: Yes Status: Acute (9) CHF (congestive heart failure) Current Visit: Yes Status: Chronic - Time Spent with Patient Total time spent is greater than 50% in coordination of care (as documented) at patient's floor/unit and/or counseling patient: Internal Medicine: Result - Labs CBC & Chem 7: 10/06/18 04:43 10/06/18 04:43 Labs: Short CBC 10/06/18 Range/Units 04:43 WBC 4.3 (4.3-11.1) K/mcL Hgb 11.0 L (12.9-16.9) g/dL Hct 34.7 L (37.5-50.1) % Plt Count 171 (140-400) K/mcL Neutrophils # 2.4 (1.6-8.9) K/mcL BMP 10/06/18 04:43 Sodium 136 Potassium 4.9 Chloride 106 Carbon Dioxide 25 BUN 35 H Creatinine 1.62 H Glucose 277 H Calcium 8.6 - ABG Interpretation ABG results: PT/INR, D-dimer PT 25.7 Seconds (9.4-12.1) H 10/06/18 04:43 - Attending Attestation I examined this patient and my medical decision-making was reviewed with the Resident Physician on 10/06/18. I agree with the documented findings, disposition and treatment plan as described except to the extent set forth below. Mr Llanes is currently admitted for hypotension and possible pneumonia. He remains moderate to high risk due to potential for worsening clinical status. Mr Llanes is feeling OK. at bedside and concerned about cause of this event. He remains off BP meds and BP is controlled. Coy in place at this time. Tolerating IV abx No GI issues. Exam alert Comfortable in bed Mucus membranes dry Heart reg and not tachy Lungs diminished and hard to hear but are clear anteriorly Abd obese and nontender I/P 1. Hypotension - resolved. Most likely due to medications. 2. Pneumonia - possible. Currently on abx. Speech eval to r/o aspiration 3. Morbid obesity Further diagnoses and plan as above. <Andrea Nowak - Last Filed: 10/06/18 12:04> (1) Hypotension Qualifiers: Hypotension type: hypotension due to drug Qualified Code(s): I95.2 - Hypotension due to drugs (3) Pneumonia Qualifiers: Pneumonia type: due to other aerobic Gram-negative bacteria Laterality: right Lung location: upper lobe of lung Qualified Code(s): J15.6 - Pneumonia due to other Gram-negative bacteria (5) Afib Qualifiers: Atrial fibrillation type: chronic Qualified Code(s): I48.2 - Chronic atrial fibrillation (9) CHF (congestive heart failure) Qualifiers: Heart failure type: diastolic Heart failure chronicity: chronic Qualified Code(s): I50.32 - Chronic diastolic (congestive) heart failure <Carlos Meza - Last Filed: 10/06/18 15:52> (1) Afib Qualifiers: Atrial fibrillation type: chronic Qualified Code(s): I48.2 - Chronic atrial fibrillation (2) Hypotension Qualifiers: Hypotension type: hypotension due to drug Qualified Code(s): I95.2 - Hypotension due to drugs (3) Pneumonia Qualifiers: Pneumonia type: due to other aerobic Gram-negative bacteria Laterality: right Lung location: upper lobe of lung Qualified Code(s): J15.6 - Pneumonia due to other Gram-negative bacteria (9) CHF (congestive heart failure) Qualifiers: Heart failure type: diastolic Heart failure chronicity: chronic Qualified Code(s): I50.32 - Chronic diastolic (congestive) heart failure
[2018-10-06] MEDS ORDERED: Aminoglycoside Consult 1 EACH MC ONE (07:48)
[2018-10-06] MEDS: Ondansetron 4 MG/2 ML VIAL IVP PRN ×2 (09:48→16:53)
[2018-10-06] MEDS: Aspirin Enteric Coated 81 MG Tablet PO SCH (09:48)
[2018-10-06] MEDS: *HR* Amiodarone 200 MG TABLET PO SCH (09:48)
[2018-10-06] MEDS: Piperacillin/Tazobactam 3.375 GM in 0.9 % Sodium Chloride Mini Bag 100 ML IVPB SCH ×2 (09:49→16:17)
[2018-10-06] MEDS: Insulin LISPRO 300 UNITS/3 ML VIAL SQ SCH ×3 (09:51→16:49)
[2018-10-06] MEDS: Budesonide/Formoterol 160/4.5 1 PUFF INH IH SCH ×2 (10:25→20:16)
[2018-10-06] MEDS: Tiotropium 18 MCG inhalation IH SCH (10:26)
--- NOTE | 2018-10-06 14:20 | Nephrology Progress Note ---
Date of Encounter: 10/06/18 Time of Encounter: 13:45 - Assessment and Plan (1) Acute kidney injury Current Visit: Yes Status: Acute Acute kidney injury with oliguria on CKD stage III. Etiology is likely prerenal in setting of hypotension. Patient had significantly decreased urination for 2 days. No history of difficulty urinating except when he had nephrolithiasis. Also, recent heavy antibiotic use at [facility] last week. Denied NSAID use. -Creatinine 1.62 (4.7 at admission) Baseline 1.6 -GFR 44, improved from 13 (baseline 40 to 50s) -I&O: 4370/3000 -urinalysis demonstrating positive leukocyte esterase and WBC 15 to 30 -renal ultrasound demonstrating minimal right hydronephrosis. Non-obstructive renal calculus. -urine sodium, creatinine, eosinophils, uric acid, CPK unremarkable plan: -patient's creatinine and GFR continue to prove back to baseline. Continue current management and IVF -continue renal protective measures including avoid nephrotoxic agents, renal dose medications -monitor I&O -continue Paredes catheter (2) CKD (chronic kidney disease) stage 3, GFR 30-59 ml/min Current Visit: Yes Status: Acute Known history of CKD stage III following [address] Dr. To in the nephrology office. GFR baseline is 40s to 50s (3) Anemia Current Visit: Yes Status: Acute Macrocytic Anemia. Etiology may be deficiency B12, or folic acid. hemoglobin 11 (baseline 12-13) MCV 101.8 iron 67, 21% saturation, transferrin to 30, ferritin 247 no obvious active bleeding. Patient denied melena or hematochezia. -Will order a B12 and folic acid level Qualifiers: Chronic kidney disease stage: stage 3 (moderate) Qualified Code(s): N18.3 - Chronic kidney disease, stage 3 (moderate); D63.1 - Anemia in chronic kidney disease (4) Pneumonia Current Visit: Yes Status: Suspected Per primary team Qualifiers: Pneumonia type: due to other aerobic Gram-negative bacteria Laterality: right Lung location: upper lobe of lung Qualified Code(s): J15.6 - Pneumonia due to other Gram-negative bacteria Subjective Principal diagnosis: Difficulty urinating Interval history: Patient seen and examined at bedside. He is alert and oriented times 3. He has no complaints at this time. He denied fever, chills, shortness of breath, dysuria, melena, hematochezia. Objective - Vital Signs Vital signs: Vital Signs Temp Pulse Resp BP Pulse Ox 10/06/18 10:54 97.6 F 83 22 118/55 93 10/06/18 10:25 18 94 10/06/18 06:21 97.9 F 109 18 123/79 94 10/06/18 04:18 97.4 F L 86 16 121/69 95 10/06/18 00:03 97.8 F 78 15 107/52 95 10/05/18 20:41 98.3 F 81 15 118/54 96 10/05/18 20:05 95 10/05/18 15:39 97.9 F 86 16 105/57 96 Intake and Output 10/05/18 10/06/18 10/06/18 23:59 07:59 15:59 Intake Total 3170 / 3170 100 / 100 120 / 120 Output Total 1300 / 1300 550 / 550 900 / 900 Balance 1870 / 1870 -450 / -450 -780 / -780 Intake: IV Fluids 1610 / 1610 100 / 100 0.9 % Sodium Chloride 1,000 ML 1000 / 1000 @ 75 mls/hr IVC .[id number] [facility] Rx #:[id number] Maxipime 1,000 MG In Water for 10 / 10 inj. (sterile) 10 ML @ 300 mls/ hr IVPB Q24H [facility] Rx#:[id number] Zosyn 3.375 GM In 0.9 % Sodium 100 / 100 100 / 100 Chloride (Mini-Bag +) 100 ML @ 25 mls/hr IVPB Q8HR [facility] Rx#: [id number] Oral 960 / 960 0 / 0 120 / 120 Free Water 600 / 600 Output: Urine 400 / 400 Catheter 1300 / 1300 550 / 550 500 / 500 Other: Meal Lunch Breakfast Percent of Meal Consumed 90% 90% Stool Size Moderate Stool Consistency soft Stool Color Brown # Bowel Movements 1 Blood Glucose* 208 235 285 - General Appearance Exam: Gen.: Vitals noted. No acute distress. AAOx3 HEENT: oropharynx clear, Normocephalic, atraumatic Neck: Supple. No adenopathy. Cardiac: RRR, no murmur, +S1/S2 Pulmonary: CTA bilaterally anteriorly, no wheezes, rales or rhonchi, equal chest expansion Abdomen: soft, nontender, Bowel sounds noted, no guarding MSK: ROM intact, no joint swelling noted Extremities: +2 BLE edema, nontender calf, no cyanosis or clubbing Neuro: A&Ox3, moves all extremities, no focal deficits Psych: Appropriate mood and behavior - Lab 10/06/18 04:43 10/06/18 04:43 Most recent lab results Calcium 8.6 mg/dL (8.6-10.3) 10/06/18 04:43 Magnesium 1.9 mg/dL (1.6-2.6) 10/04/18 04:27 Urine Creatinine 86 mg/dL 10/04/18 01:15 Urine Sodium 44.6 mEq/L 10/04/18 01:15 Consult Discharge Plan - Plan Referrals: NONE,PCP [Primary Care Provider] -
[2018-10-06] MEDS ORDERED: Insulin LISPRO 300 UNITS/3 ML VIAL SQ SCH (14:33)
[2018-10-06] MEDS: 0.9 % Sodium Chloride 1,000 ML IVC SCH (16:19)
[2018-10-06] MEDS ORDERED: *HR* Warfarin 2.5 MG TABLET PO ONE (18:00)
[2018-10-06] MEDS: Albuterol 2.5 MG/3 ML NEBULIZER IH PRN (20:16)
[2018-10-06] MEDS ORDERED: Insulin DETEMIR 100 UNIT/ML X5UNITS SQ SCH (21:00)
[2018-10-06] MEDS: Metoprolol XL (24 HR) Succ 25 MG TAB.ER.24H PO SCH (21:27)
[2018-10-07] MEDS: 0.9 % Sodium Chloride 1,000 ML IVC SCH (02:50)
[2018-10-07] MEDS: Piperacillin/Tazobactam 3.375 GM in 0.9 % Sodium Chloride Mini Bag 100 ML IVPB SCH ×2 (02:59→10:57)
[2018-10-07 04:15] LABS: Basophils % 0.7 %; Eosinophils # 0.3 K/mcL (0.0-0.6); Eosinophils % 7.5 %; Hematocrit 34.9 % (37.5-50.1); Hemoglobin 11.1 g/dL (12.9-16.9); Immature Granulocytes % 0.5 % (0-4); Lymphocytes # 1.3 K/mcL (0.6-4.6); Lymphocytes % 29.8 %; Mean Corpuscular HGB Conc 31.8 g/dL (31.6-35.5); Mean Corpuscular Hemoglobin 32.6 pg (28.0-33.3); Mean Corpuscular Volume 102.3 fL (83.0-100.0); Mean Platelet Volume 11.3 fL (9.4-12.4); Monocytes # 0.5 K/mcL (0.0-1.3); Monocytes % 11.8 %; Neutrophils # 2.2 K/mcL (1.6-8.9); Platelet Count 165 K/mcL (140-400); Red Blood Count 3.41 M/mcL (4.19-5.50); Red Cell Distribution Width 15.1 % (11.5-14.5); Segmented Neutrophils % 49.7 %
[2018-10-07 04:25] LABS: INR 2.4; Prothrombin Time 27.5 Seconds (9.4-12.1)
[2018-10-07 04:34] LABS: BUN/Creatinine Ratio 17 (6-26); Blood Urea Nitrogen 22 mg/dL (6-20); Calcium 8.6 mg/dL (8.6-10.3); Carbon Dioxide 23 mEq/L (23-29); Chloride 108 mEq/L (98-107); Glucose 208 mg/dL (70-105); Osmolality,Calculated 293 (280-300); Potassium 5.2 mEq/L (3.5-5.1); Sodium 137 mEq/L (136-145); eGFR For Non-African Americans 56 (> 60)
[2018-10-07 04:59] LABS: Folate 4.3 ng/mL (3.0-16.0)
--- NOTE | 2018-10-07 07:20 | Discharge Summary ---
<Andrea Nowak - Last Filed: 10/07/18 15:07> - NOTES TO OUTPATIENT PROVIDER Notes to Outpatient Provider: Admitted 10/03/18 with hypotension, TERESA, and urinary retention. BP on arrival 75/53, improved each day and 124/62 most recent. Renal function improved each day with Cr 4.7 to 1.31. Coy placed in ED with minimal output initially but increased output when BP started to normalize. Received empiric abx for suspected RUL pneumonia. Will dc holding all home antihypertensives and diuretics except metoprolol with instruction to start daily lasix again if startes to gain weight. Has appt with neph already next week and will have BMP prior to appt. New dc medication only B12 supplementation Orders not resulted at time of discharge: Pending orders 10/03/18 13:46 ECG 12 lead ECG [ECG] Stat 10/03/18 14:35 Culture,Blood [BC] Stat 10/03/18 18:55 Culture,Sputum with Gram Stain [RM] Routine 10/04/18 06:00 ECG 12 lead ECG [ECG] AM 0600 10/08/18 04:00 PT/INR [Prothrombin Time INR] [COAG] AM 0400 Date of Encounter: 10/07/18 Time of Encounter: 07:15 - Discharge Diagnosis (1) Hypotension Priority: Primary Status: Resolved Assessment and Plan: -Arrival to ED RR 20, BP 75/53, TERESA, and suspected pneumonia on ED -CXR 10/03/18 Right upper lobe airspace disease possibly representing pneumonia -I do not think he is septic at this time given no signs of infection and pneumonia call on cxr appears soft to me and likely residual imaging lag from recent pneumonia treatment. -Will treat as sepsis till proven otherwise but does not meet criteria at this time. -BP appears to initially respond to fluid bolus in ED but all repeat readings since have been lower. Likely cuff placement discrepancy. -WBC 9.4, afebrile on arrival. -Empiric vanc, cefepime, and zosyn renally dosed given Cr 4.7 on arrival. -BC x2 drawn 10/03/18 ngtd -Sputum culture/gram stain pending -Urine culture neg, UA not indicative of UTI -Resp pcr, legionella, s pneumo, and lactic normal. -WBC lower today, 4.4, afebrile -Deescalate abx 10/05/18 when [facility] records arrived, vanc, cefepime dc'd -BP overnight improving to 114-120's/60's. -Most recent BP 124/62 -At this point I still do not think his hypotension was sepsis related and more likely he has been over medicated as his pressures have been improving each day while holding all antihypertensives and diuretics since arrival. -Continues to have no signs of infection. -Cxr 10/05/18 Decreased right upper lobe airspace disease. Stable cardiomegaly with pulmonary vascular congestion -Metoprolol restarted, all other antihypertensinves and diuretics will be held at dc till fu with neph next week. Qualifiers: Hypotension type: hypotension due to drug Qualified Code(s): I95.2 - Hypotension due to drugs (2) Acute kidney injury Priority: Secondary Status: Acute Assessment and Plan: -Cr 4.7, BUN 63 on arrival -Etiology unknown at this time prerenal vs postrenal -Hypotensive on arrival -Minimal urine output the 2 days prior to arrival with just dribbles -Obstructive less likely given coy was placed in ED and minimal urine output drained -Renal US Minimal right-sided hydronephrosis. Nonobstructing right renal calculus. -ECHO 10/04/18, EF 55%, atypical septal motion. mild left ventricular diastolic dysfunction, mild tr, mild ph -Renal dose meds -Hold antihypertensives and nephrotoxic meds -Improving renal function, Cr 1.31, BUN 22 -UOP with coy 2950ml last 24 hrs -Deescalated abx yst, vanc, cefepime dc'd -Will continue to trend renal function, urine output, and electrolytes -Neph on board and appreciate their recs. Code(s): N17.9 - Acute kidney failure, unspecified SNOMED Code(s): 66644884 (3) Pneumonia Priority: Secondary Status: Suspected Assessment and Plan: -Suspected pneumonia on CXR in ED -CXR 10/03/18 Right upper lobe airspace disease possibly representing pneumonia -No other signs of infection, wbc 4.4, afebrile, baseline cough and sob not worsening -Was treated for pneumonia at [facility] last week. CXR findings could likely be post treatment imaging lag. -Resp pcr, lehionella, s pneumo antigen neg -Sputum culture/gram stain pending -BC x2 drawn 10/03/18 ngtd -Cxr 10/05/18 Decreased right upper lobe airspace disease. Stable cardiomegaly with pulmonary vascular congestion -Abx deescalated, vanc, cefepime dc'd -Stopping antimicrobials Qualifiers: Pneumonia type: due to other aerobic Gram-negative bacteria Laterality: right Lung location: upper lobe of lung Qualified Code(s): J15.6 - Pneumonia due to other Gram-negative bacteria (4) Urinary retention Priority: Secondary Status: Resolved Assessment and Plan: -2 days of minimal urine output. -Coy was placed in ED and minimal output -Improving TERESA currently with Cr 1.62 and BUN 35 -UOP 2950ml last 24 hrs. Adequate uop with coy -Removed coy, voided with residual 32ml (5) Afib Priority: Secondary Status: Chronic Assessment and Plan: Hx of afib. -Anticoagulated on warfarin -Home meds not fully clear but appears from past records to be controlled with diltiazem, metoprolol, and amioderone. -Home amio restarted 10/04/18 -HR stable, metoprolol restarted 10/06/18. Qualifiers: Atrial fibrillation type: chronic Qualified Code(s): I48.2 - Chronic atrial fibrillation (6) Diabetes mellitus type 2, insulin dependent Priority: Secondary Status: Acute Assessment and Plan: -Glucose on arrival 301 -Past records indicate basal, ssi, and adjuncts -Glucose this morning 208 -A1C 8.9% -Will continue basal and ssi and hold adjuncts (7) CKD (chronic kidney disease) stage 3, GFR 30-59 ml/min Priority: Secondary Status: Acute Assessment and Plan: Hx of CKD 3 -TERESA currently -Renal dosing meds, avoiding nephrotoxins -Neph consulted (8) Morbid obesity with BMI of 60.0-69.9, adult Priority: Secondary Status: Acute Assessment and Plan: Morbidly obese -BMI 66.5 -Should consider outpt consult for bariatric surgerical options (9) CHF (congestive heart failure) Priority: Secondary Status: Chronic Assessment and Plan: Hx of CHF -Decreased systolic output may be cause of hypotension and TERESA -ECHO 10/04/18, EF 55%, atypical septal motion. mild left ventricular diastolic dysfunction, mild tr, mild ph -Holding all diuretics Qualifiers: Heart failure type: diastolic Heart failure chronicity: chronic Qualified Code(s): I50.32 - Chronic diastolic (congestive) heart failure Hospital course: Mr. Llanes is a 58 year old male who was working with PT and found to be hypotensive with systolics in the 70's and told to go to the ED. He had no symptoms with hypotension. His main complaint was being unable to urinate more than a few dribbles the last 2 days prior to admission. He previously was urinating normally. He says he felt the urge to urinate but after a few drops the urge goes away. He gained 10 lbs over couple days prior to arrival. Upon arrival to the ED initial vitals 97.4F, HR 75, RR 20, BP 75/53, 96%rmair. Cxr showed R upper lobe airspace disease, possibly pneumonia. He was given initial fluid bolus 500ml that pressures initially appeared to respond to at 129/69. He received another 1L bolus but BP has been lower since last recorded in ED at 94/69 and lower systolics in 80's when I was in ED room. He was recently dc from [facility] and was treated for fall, gi bleed, sepsis, pneumonia, and UTI. He was given no new medications at dc from [facility]. Empiric vanc, cefepime, and zosyn renally dosed given Cr 4.7 on arrival. BC x2 drawn 10/03/18 ngtd Urine culture neg, UA not indicative of UTI. Resp pcr, legionella, s pneumo, and lactic normal. WBC lower today, 4.4, afebrile. Renal US Minimal right-sided hydronephrosis. Nonobstructing right renal calculus. ECHO 10/04/18, EF 55%, atypical septal motion. mild left ventricular diastolic dysfunction, mild tr, mild ph. TERESA, improving renal function, Cr 1.31, BUN 22. At time of dc BP 124/62, metoprolol restarted, all other antihypertensives, diuretics, and medications with hemodynamic effects are held till fu with neph next week. Will get BMP prior to neph appt. He was instructed to start daily lasix if he gains weight prior to neph appt. B12 supplement started per neph recs. Discharge discussed with: patient, family - Time Spent with Patient Total time spent providing and/or coordinating discharge services: Greater than 30 minutes - Discharge Medications Prescriptions: Cyanocobalamin (Vitamin B-12) [B-12] 1,000 mcg PO DAILY 30 Days #30 tablet.er Home Medications: Fluticasone/Salmeterol [Advair 500-50 Diskus] 1 each IH Q12H 07/10/15 [History] Insulin DETEMIR [Levemir Flextouch] 40 unit SQ HS 07/10/15 [History] Sitagliptin Phosphate [Januvia] 50 mg PO QAM 07/10/15 [History] Albuterol Sulfate [Albuterol Inhaler] 1 puff IH Q6HR PRN 10/04/18 [History] Amiodarone HCl 200 mg PO DAILY 10/04/18 [History] Atorvastatin [Lipitor] 40 mg PO HS 10/04/18 [History] Docusate [Colace] 100 mg PO DAILY 10/04/18 [History] Dulaglutide [Trulicity] 0.75 mg SQ QWEEK 10/04/18 [History] Glimepiride [Amaryl] 4 mg PO BID 10/04/18 [History] Metoprolol XL (24 HR) Succ [Toprol Xl] 25 mg PO BID 10/04/18 [History] Pantoprazole Sodium [Protonix] 40 mg PO DAILY 10/04/18 [History] Tiotropium [Spiriva] 1 puff IH DAILY 10/04/18 [History] Warfarin [Coumadin] 5 mg PO AD 10/04/18 [History] Cyanocobalamin (Vitamin B-12) [B-12] 1,000 mcg PO DAILY 30 Days #30 tablet.er [Rx] Allergies/Adverse Reactions: Allergy/AdvReac Type Severity Reaction Status Date / Time Perflutren [From Definity] AdvReac Nausea Verified 10/04/18 11:23 Date of admission: 10/03/18 16:35 Primary care physician: PCP NONE Consults: 10/03/18 17:00 Consult to Nephrology [CONS] Routine Consulting Provider: Kidney Pat/TEJA/DO/CHERI Reason for Consult: teresa on ckd Call Completed: Yes 10/03/18 17:46 Consult to Environmental Geologist [CONS] Routine Reason for SW Consult: begin to assist with dc needs, recent dc from [facility] this month 10/03/18 21:19 Consult to Respiratory Therapy [CONS] Stat Reason for Consult: bipap Call Completed: Yes 10/06/18 14:26 Consult to Physical Therapy [CONS] Routine Comment: Evaluate, develop and implement POC Reason for Consult: Mobility Does patient have active BEDREST order?: No Is patient medically & hemodynamically stable?: Yes Discharging clinician: Andrea Nowak Anticipated date of discharge: 10/07/18 - Constitutional Vitals: Temp Pulse Resp BP Pulse Ox 97.8 F 67 20 116/60 96 10/07/18 05:40 10/07/18 05:40 10/07/18 05:40 10/07/18 05:40 10/07/18 05:40 Exam: General: Awake, alert, morbidly obese, no acute distress or signs of toxicity Head: Atraumatic, normocephalic Eye: Pupils equal and round, EOMi, no scleral icterus ENT: mucus membranes moist Chest: Symmetric chest rise, non tender to palpation Cardiac: RRR, distant but present S1/S2, no murmurs, rubs, gallops appreciated, radial pulses 2+ bilat, trace edema Pulmonary: Normal resp effort, decreased air movement, diminished throughout, no wheezes, rhonchi, rales appreciated Abdominal: Soft, tender to palpation RUQ/LUQ, non distended, no voluntary guarding, rebound, or rigidity. Bruising on abdomen Back: Non tender, no CVA tenderness Extremities: No clubbing, cyanosis Neuro: CN's grossly intact, no focal deficits Psych: normal affect Integumentary: [place], warm, dry, intact - Patient Status Disposition: Home Health Service Condition: Good Functional capacity at discharge: uses cane/walker Overall status at discharge: patient is progressing back to baseline - Ambulatory Orders Ambulatory Orders: Basic Metabolic Panel [CHEM] Time Frame: 1 Week, Facility: [facility], Location: Home Health Services - Discharge Instructions Instructions: Cyanocobalamin (Vitamin B-12) (Injection), Acute Kidney Injury (DC), Urinary Retention in Men (GEN) Follow Up With: Georgi Ann Jr, MD [Non-Partnered Physician] - 10/29/18 11:00 am (the earliest hospital follow up for Dr ann) Johnie To DO [Partnered Physician] - 10/15/18 3:30 pm - Diet and Activity Activity: as per physical therapy, increase activity as tolerated, resume usual activities as tolerated, wear oxygen at all times Diet: diabetic diet <Carlos Meza - Last Filed: 10/07/18 16:06> Orders not resulted at time of discharge: Pending orders 10/03/18 13:46 ECG 12 lead ECG [ECG] Stat 10/03/18 14:35 Culture,Blood [BC] Stat 10/03/18 18:55 Culture,Sputum with Gram Stain [RM] Routine 10/08/18 04:00 PT/INR [Prothrombin Time INR] [COAG] AM 0400 Date of Encounter: 10/07/18 - Discharge Diagnosis (1) Afib Status: Chronic Qualifiers: Atrial fibrillation type: chronic Qualified Code(s): I48.2 - Chronic atrial fibrillation (2) Hypotension Status: Resolved Qualifiers: Hypotension type: hypotension due to drug Qualified Code(s): I95.2 - Hypotension due to drugs (3) Pneumonia Status: Suspected Qualifiers: Pneumonia type: due to other aerobic Gram-negative bacteria Laterality: right Lung location: upper lobe of lung Qualified Code(s): J15.6 - Pneumonia due to other Gram-negative bacteria (4) Acute kidney injury Status: Acute Code(s): N17.9 - Acute kidney failure, unspecified SNOMED Code(s): 12335275 (5) Urinary retention Status: Resolved (6) Morbid obesity with BMI of 60.0-69.9, adult Status: Acute (7) Diabetes mellitus type 2, insulin dependent Status: Acute (8) CKD (chronic kidney disease) stage 3, GFR 30-59 ml/min Status: Acute (9) CHF (congestive heart failure) Status: Chronic Qualifiers: Heart failure type: diastolic Heart failure chronicity: chronic Qualified Code(s): I50.32 - Chronic diastolic (congestive) heart failure (10) Anemia Status: Suspected Qualifiers: Anemia type: due to chronic kidney disease Chronic kidney disease stage: stage 3 (moderate) Qualified Code(s): N18.3 - Chronic kidney disease, stage 3 (moderate); D63.1 - Anemia in chronic kidney disease Hospital course: Mr. Llanes is a 58 year old male - Time Spent with Patient Total time spent providing and/or coordinating discharge services: 38min Date of admission: 10/03/18 16:35 Primary care physician: PCP NONE Consults: 10/03/18 17:00 Consult to Nephrology [CONS] Routine Consulting Provider: Kidney Pat/TEJA/DO/CHERI Reason for Consult: teresa on ckd Call Completed: Yes 10/03/18 17:46 Consult to Environmental Geologist [CONS] Routine Reason for SW Consult: begin to assist with dc needs, recent dc from [facility] this month 10/03/18 21:19 Consult to Respiratory Therapy [CONS] Stat Reason for Consult: bipap Call Completed: Yes - Constitutional Vitals: Temp Pulse Resp BP Pulse Ox 97.9 F 64 18 124/62 95 10/07/18 07:22 10/07/18 07:22 10/07/18 08:21 10/07/18 07:22 10/07/18 08:21 - Attending Attestation I examined this patient and my medical decision-making was reviewed with the Resident Physician on 10/07/18. I agree with the documented findings, disposition and treatment plan as described except to the extent set forth below. Mr Llanes has been admitted for hypotension and possible pneumonia. He was recently discharged from [facility]. His BP has improved with holding meds and fluid resuscitation. He is afebrile and up in chair. He has no cough or other symptoms at this time. He is ready for discharge home after coy removed and urinating. Exam alert Comfortable up in chair Mucus membranes dry Heart not tachy No wheeze Abd nontender Plan D/C home today after urinating and PVR. No abx at this time Meds as above
[2018-10-07 07:29] VITALS: BP 124/62
[2018-10-07] MEDS: Albuterol 2.5 MG/3 ML NEBULIZER IH PRN (08:18)
[2018-10-07] MEDS: Budesonide/Formoterol 160/4.5 1 PUFF INH IH SCH (08:20)
[2018-10-07] MEDS: *HR* Amiodarone 200 MG TABLET PO SCH (10:57)
[2018-10-07] MEDS: Metoprolol XL (24 HR) Succ 25 MG TAB.ER.24H PO SCH (10:57)
[2018-10-07] MEDS: Aspirin Enteric Coated 81 MG Tablet PO SCH (10:57)
[2018-10-07] MEDS: Insulin LISPRO 300 UNITS/3 ML VIAL SQ SCH (11:23)
--- NOTE | 2018-10-07 13:18 | Nephrology Progress Note ---
Date of Encounter: 10/07/18 Time of Encounter: 11:15 - Assessment and Plan (1) Acute kidney injury Current Visit: Yes Status: Acute Acute kidney injury with oliguria on CKD stage III. Etiology is likely prerenal in setting of hypotension. Patient had significantly decreased urination for 2 days. No history of difficulty urinating except when he had nephrolithiasis. Also, recent heavy antibiotic use at [facility] last week. Denied NSAID use. -Creatinine 1.31 (4.7 at admission) Baseline 1.6 -GFR 44, improved from 13 (baseline 40 to 50s) -I&O: 1520/2950 50 urine output -urinalysis demonstrating positive leukocyte esterase and WBC 15 to 30 -renal ultrasound demonstrating minimal right hydronephrosis. Non-obstructive renal calculus. -urine sodium, creatinine, eosinophils, uric acid, CPK unremarkable plan: -patient's creatinine and GFR continue to prove back to baseline, he may be discharged from a nephrology standpoint. -Recommend to continue patient's Toprol for blood pressure and to hold the home lisinopril, Aldactone, Lasix until his follow-up appointment with his product sales engineer Dr. To in a week. Instructed him to take one dose of Lasix daily should he start to notice lower extremity swelling. He should have a BMP prior to his appointment with his product sales engineer. This was discussed with the patient and his he stated clear understanding. (2) CKD (chronic kidney disease) stage 3, GFR 30-59 ml/min Current Visit: Yes Status: Acute Known history of CKD stage III following [address]. To in the nephrology office. GFR baseline is 40s to 50s (3) Anemia Current Visit: Yes Status: Acute Macrocytic Anemia. Etiology may be deficiency B12, or folic acid. hemoglobin 11.1 (baseline 12-13) MCV 101.8 iron 67, 21% saturation, transferrin to 30, ferritin 247 no obvious active bleeding. Patient denied melena or hematochezia. Folic acid WNL vitamin B12 202 low -Recommended the patient be discharged with vitamin B12 supplementation Qualifiers: Chronic kidney disease stage: stage 3 (moderate) Qualified Code(s): N18.3 - Chronic kidney disease, stage 3 (moderate); D63.1 - Anemia in chronic kidney disease (4) Pneumonia Current Visit: Yes Status: Suspected Per primary team Qualifiers: Pneumonia type: due to other aerobic Gram-negative bacteria Laterality: right Lung location: upper lobe of lung Qualified Code(s): J15.6 - Pneumonia due to other Gram-negative bacteria Subjective Principal diagnosis: Difficulty urinating Interval history: Patient seen and examined at bedside. He is alert and oriented times 3. He has no complaints at this time. He denied fever, chills, shortness of breath, dysuria, melena, hematochezia. Objective - Vital Signs Vital signs: Vital Signs Temp Pulse Resp BP Pulse Ox 10/07/18 08:21 18 95 10/07/18 07:22 97.9 F 64 16 124/62 96 10/07/18 05:40 97.8 F 67 20 116/60 96 10/06/18 23:50 98.0 F 70 18 116/64 97 10/06/18 21:00 98.0 F 106 18 114/49 96 10/06/18 20:19 14 100 10/06/18 16:37 98.8 F 98 21 128/72 94 Intake and Output 10/06/18 10/07/18 10/07/18 23:59 07:59 15:59 Intake Total 200 / 200 1100 / 1100 120 / 120 Output Total 1500 / 1500 700 / 700 275 / 275 Balance -1300 / -1300 400 / 400 -155 / -155 Intake: IV Fluids 100 / 100 1100 / 1100 0.9 % Sodium Chloride 1,000 ML 1000 / 1000 @ 75 mls/hr IVC .[id number] [facility] Rx #:[id number] Zosyn 3.375 GM In 0.9 % Sodium 100 / 100 100 / 100 Chloride (Mini-Bag +) 100 ML @ 25 mls/hr IVPB Q8HR [facility] Rx#: [id number] Oral 100 / 100 0 / 0 120 / 120 Output: Catheter 1500 / 1500 700 / 700 275 / 275 Other: Meal Breakfast Percent of Meal Consumed 5% 100% Weight 239.5 kg Blood Glucose* 253 191 223 - General Appearance Exam: Gen.: Vitals noted. No acute distress. AAOx3 HEENT: oropharynx clear, Normocephalic, atraumatic Neck: Supple. No adenopathy. Cardiac: RRR, no murmur, +S1/S2 Pulmonary: CTA bilaterally anteriorly, no wheezes, rales or rhonchi, equal chest expansion Abdomen: soft, nontender, Bowel sounds noted, no guarding MSK: ROM intact, no joint swelling noted Extremities: +2 BLE edema, nontender calf, no cyanosis or clubbing Neuro: A&Ox3, moves all extremities, no focal deficits Psych: Appropriate mood and behavior - Lab 10/07/18 03:25 10/07/18 03:25 Most recent lab results Calcium 8.6 mg/dL (8.6-10.3) 10/07/18 03:25 Magnesium 1.9 mg/dL (1.6-2.6) 10/04/18 04:27 Urine Creatinine 86 mg/dL 10/04/18 01:15 Urine Sodium 44.6 mEq/L 10/04/18 01:15 Consult Discharge Plan - Plan Referrals: Georgi Ann Jr, MD [Non-Partnered Physician] - 10/29/18 11:00 am (the earliest hospital follow up for Dr ann) Johnie To DO [Partnered Physician] - 10/15/18 3:30 pm Prescriptions: Cyanocobalamin (Vitamin B-12) [B-12] 1,000 mcg PO DAILY 30 Days #30 tablet.er
--- NOTE | 2018-10-07 13:55 | Physician Discharge Referral ---
Home Health/Hosp Referral Info Transfer to: Home Health Attending Provider: Dr Meza Provider in Charge Post Discharge: PCP - Diagnosis (1) Hypotension Priority: Primary Status: Resolved (2) Acute kidney injury Priority: Secondary Status: Acute (3) Pneumonia Priority: Secondary Status: Suspected (4) Urinary retention Priority: Secondary Status: Resolved (5) Afib Priority: Secondary Status: Chronic (6) Diabetes mellitus type 2, insulin dependent Priority: Secondary Status: Acute (7) CHF (congestive heart failure) Priority: Secondary Status: Chronic (8) CKD (chronic kidney disease) stage 3, GFR 30-59 ml/min Priority: Secondary Status: Acute (9) Morbid obesity with BMI of 60.0-69.9, adult Priority: Secondary Status: Acute - Respiratory Orders Other (BiPAP at night) Smoking Cessation: Smoking cessation has been advised. For more information, call the [place] Tobacco Quit Line at 1-757-SUMJ-NOW. - Diet/Nutrition Diet/Nutrition Orders: Renal - Activity Activity Orders: Walker - Services Needed Following services are medically necessary services: Nursing, Home Health Aide, Physical Therapy, Occupational Therapy - Transfer Medications Prescriptions: Cyanocobalamin (Vitamin B-12) [B-12] 1,000 mcg PO DAILY 30 Days #30 tablet.er Home Medications: Fluticasone/Salmeterol [Advair 500-50 Diskus] 1 each IH Q12H 07/10/15 [History] Insulin DETEMIR [Levemir Flextouch] 40 unit SQ HS 07/10/15 [History] Sitagliptin Phosphate [Januvia] 50 mg PO QAM 07/10/15 [History] Albuterol Sulfate [Albuterol Inhaler] 1 puff IH Q6HR PRN 10/04/18 [History] Amiodarone HCl 200 mg PO DAILY 10/04/18 [History] Atorvastatin [Lipitor] 40 mg PO HS 10/04/18 [History] Docusate [Colace] 100 mg PO DAILY 10/04/18 [History] Dulaglutide [Trulicity] 0.75 mg SQ QWEEK 10/04/18 [History] Glimepiride [Amaryl] 4 mg PO BID 10/04/18 [History] Metoprolol XL (24 HR) Succ [Toprol Xl] 25 mg PO BID 10/04/18 [History] Pantoprazole Sodium [Protonix] 40 mg PO DAILY 10/04/18 [History] Tiotropium [Spiriva] 1 puff IH DAILY 10/04/18 [History] Warfarin [Coumadin] 5 mg PO AD 10/04/18 [History] Cyanocobalamin (Vitamin B-12) [B-12] 1,000 mcg PO DAILY 30 Days #30 tablet.er 10/07/18 [Rx] Allergies/Adverse Reactions: Allergy/AdvReac Type Severity Reaction Status Date / Time Perflutren [From Definity] AdvReac Nausea Verified 10/04/18 11:23 Certification: Further, I certify that my clinical findings support that this patient is homebound (i.e. absences from home require considerable and taxing effort and are for medical reasons or yarsanism services or infrequently or short duration when for other reasons) because: Homebound Reason: Patient requires assistance of a person or device to safely leave home, Leaving home requires considerable and taxing effort due to condition, Severity of cardiac or pulmonary status limits activity tolerance Attestation: My signature below is to certify that this patient is under my care and that I, or nurse practitioner, or a physician's elder assistant working with me, has a [id number] encounter with this patient.
[2018-10-07] MEDS ORDERED: *HR* Warfarin 5 MG TABLET PO ONE (18:00)
== END 2018-10-07 17:06 | disposition home health service (06) | DRG 178 ==
LOC: EMEROOARM 12:48 → 2NENU 12:48 → SUATTDRO 16:35 → 2NENU 19:40
PROVIDERS: ADMIT Internal Medicine; ATTEND Internal Medicine

== ENCOUNTER 2020-09-13 23:08 | Inpatient (IN) ==
[2020-09-14] MEDS ORDERED: *HR* HYDROmorphone (PF) 1 MG/ML SYRINGE IVP ONE (00:19)
[2020-09-14 00:24] LABS: Bacteria,Urine Few per hpf (None-Few); Bilirubin,Urine Negative (Negative); Blood,Urine Negative (Negative); Clarity,Urine Clear (Clear); Color,Urine Yellow (Yellow); Glucose,Urine (UA) >=1000 mg/dL (Normal); Ketones,Urine Negative (Negative); Leukocyte Esterase,Urine Trace (Negative); Nitrite,Urine Negative (Negative); Protein,Urine Negative (Neg-Trace); RBC,Urine 0-3 per hpf (0-3); Specific Gravity,Urine 1.028 (1.010-1.025); Squamous Epithelial Cell,Urine Few per hpf (None-Few); Urobilinogen,Urine Normal (Normal)
[2020-09-14 00:28] LABS: Basophils % 0.1 %; Hematocrit 43.3 % (37.5-50.1); Hemoglobin 13.6 g/dL (12.9-16.9); INR 3.4; Immature Granulocytes % 0.5 % (0-4); Lymphocytes # 0.3 K/mcL (0.6-4.6); Mean Corpuscular HGB Conc 31.4 g/dL (31.6-35.5); Mean Corpuscular Hemoglobin 31.1 pg (28.0-33.3); Mean Corpuscular Volume 99.1 fL (83.0-100.0); Mean Platelet Volume 11.9 fL (9.4-12.4); Monocytes # 0.5 K/mcL (0.0-1.3); Monocytes % 4.7 %; Neutrophils # 9.8 K/mcL (1.6-8.9); Nucleated Red Blood Cells 0.8 /100 WBC (0); Platelet Count 113 K/mcL (140-400); Prothrombin Time 38.4 Seconds (9.4-12.1); Red Blood Count 4.37 M/mcL (4.19-5.50); Red Cell Distribution Width 15.3 % (11.5-14.5); Segmented Neutrophils % 91.7 %; White Blood Count 10.7 K/mcL (4.3-11.1)
[2020-09-14 00:31] LABS: Activated Partial Thrombo Time 42.4 Seconds (26.0-36.0)
[2020-09-14 00:56] LABS: Albumin/Globulin Ratio 0.9 (1.1-2.2); Bilirubin,Total 3.7 mg/dL (0.3-1.0); Calcium 8.8 mg/dL (8.6-10.3); Globulin 3.3 g/dL (2.4-3.5); Potassium 4.6 mEq/L (3.5-5.1); Total Protein 6.3 g/dL (6.4-8.9); Troponin I 0.07 ng/mL (< 0.04)
[2020-09-14] MEDS ORDERED: Aspirin 81 MG TAB.CHEW PO ONE (01:44)
[2020-09-14] MEDS ORDERED: Naloxone 0.4 MG/ML INJ IVP PRN (04:30)
[2020-09-14] MEDS ORDERED: Ringers Solution, Lactated 1,000 ML IVC SCH (04:30)
[2020-09-14] MEDS ORDERED: Ondansetron 4 MG/2 ML VIAL IVP PRN (04:30)
[2020-09-14] MEDS ORDERED: *HR* Dextrose 50 % in Water (Vial) 50 ML VIAL IVP PRN (04:33)
[2020-09-14] MEDS ORDERED: D5% in Water 1,000 ML IVC PRN (04:33)
[2020-09-14] MEDS ORDERED: Dextrose Gel 15 GM/37.5 ML TUBE PO PRN ×2 (04:33)
[2020-09-14] MEDS: Insulin LISPRO 300 UNITS/3 ML VIAL SQ SCH ×4 (06:10→17:54)
[2020-09-14] MEDS: Furosemide 40 MG/4 ML VIAL IVP SCH (09:43)
[2020-09-14] MEDS: Metoprolol XL (24 HR) Succ 25 MG TAB.ER.24H PO SCH ×2 (09:44→20:34)
[2020-09-14] MEDS: *HR* Amiodarone 200 MG TABLET PO SCH (09:44)
[2020-09-14] MEDS ORDERED: 0.9 % Sodium Chloride 250 ML ONE ×3 (12:30→23:58)
[2020-09-14] MEDS ORDERED: Warfarin perPT PO PRN (18:00)
[2020-09-14] MEDS: Gabapentin 300 MG CAPSULE PO SCH (20:34)
[2020-09-14] MEDS: Insulin DETEMIR 100 UNIT/ML X5UNITS SQ SCH (20:34)
[2020-09-14 21:58] LABS: INR 2.6; Prothrombin Time 29.3 Seconds (9.4-12.1)
[2020-09-15 04:15] LABS: INR 1.7; Prothrombin Time 19.3 Seconds (9.4-12.1)
[2020-09-15 04:28] LABS: Albumin 3.4 g/dL (3.5-5.7); Albumin/Globulin Ratio 1.1 (1.1-2.2); Bilirubin,Total 6.9 mg/dL (0.3-1.0); Globulin 3.1 g/dL (2.4-3.5); Potassium 4.5 mEq/L (3.5-5.1); Total Protein 6.5 g/dL (6.4-8.9)
[2020-09-15 06:41] LABS: INR 1.6; Prothrombin Time 18.1 Seconds (9.4-12.1)
[2020-09-15] MEDS: Insulin LISPRO 300 UNITS/3 ML VIAL SQ SCH ×3 (07:47→16:35)
[2020-09-15] MEDS ORDERED: *HR* Succinylcholine 200 MG/10 ML VIAL IVP ONE (07:51)
[2020-09-15] MEDS ORDERED: Lidocaine -MPF 2% 2 ML VIAL ONE (07:51)
[2020-09-15] MEDS ORDERED: Dexamethasone 4 MG/ML VIAL ONE (07:51)
[2020-09-15] MEDS ORDERED: Ondansetron 4 MG/2 ML VIAL ONE (07:51)
[2020-09-15] MEDS ORDERED: Lidocaine HCL 4 ML Topical Solution (Laryng-O-Jet Kit Sterile Pak) TP ONE (07:51)
[2020-09-15] MEDS ORDERED: *HR* Propofol 200 MG/20 ML VIAL IVP ONE (07:54)
[2020-09-15] MEDS ORDERED: *HR* Midazolam HCl 2 MG/2 ML VIAL ONE (08:00)
[2020-09-15] MEDS ORDERED: *HR* Rocuronium Bromide 50 MG/5 ML VIAL ONE ×2 (08:11→09:35)
[2020-09-15] MEDS ORDERED: Indomethacin 50 MG SUPP.RECT RC ONE (09:30)
[2020-09-15] MEDS ORDERED: Albuterol 2.5 MG/3 ML NEBULIZER ONE (09:42)
[2020-09-15] MEDS ORDERED: Albuterol 2.5 MG/3 ML NEBULIZER IH ONE (09:45)
[2020-09-15] MEDS: *HR* Amiodarone 200 MG TABLET PO SCH (12:53)
[2020-09-15] MEDS: Metoprolol XL (24 HR) Succ 25 MG TAB.ER.24H PO SCH ×2 (12:53→20:30)
[2020-09-15] MEDS: Aspirin Enteric Coated 81 MG Tablet PO SCH (12:53)
[2020-09-15] MEDS: Furosemide 40 MG/4 ML VIAL IVP SCH ×3 (12:54→20:30)
[2020-09-15] MEDS: cefTRIAXone 2,000 MG in Water for inj. (sterile) 20 ML IVP SCH (13:17)
[2020-09-15] MEDS: MetroNIDAZOLE 500 MG/100 ML 500 MG/100 ML BAG IVPB SCH ×2 (16:34→23:27)
[2020-09-15] MEDS ORDERED: Warfarin perPT PO PRN (18:00)
[2020-09-15] MEDS ORDERED: GI Cocktail 40 ML EACH PO ONE (18:25)
[2020-09-15] MEDS: Insulin DETEMIR 100 UNIT/ML X5UNITS SQ SCH (20:30)
[2020-09-15] MEDS: Gabapentin 300 MG CAPSULE PO SCH (20:30)
[2020-09-16 02:35] LABS: Basophils % 0.1 %; Hematocrit 42.2 % (37.5-50.1); Hemoglobin 13.1 g/dL (12.9-16.9); Immature Granulocytes % 0.6 % (0-4); Lymphocytes % 5.8 %; Mean Corpuscular Hemoglobin 31.8 pg (28.0-33.3); Mean Corpuscular Volume 102.4 fL (83.0-100.0); Mean Platelet Volume 12.1 fL (9.4-12.4); Monocytes % 4.2 %; Platelet Count 121 K/mcL (140-400); Red Blood Count 4.12 M/mcL (4.19-5.50); Red Cell Distribution Width 14.9 % (11.5-14.5); Segmented Neutrophils % 89.3 %; White Blood Count 7.1 K/mcL (4.3-11.1)
[2020-09-16 02:36] LABS: Lymphocytes # 0.4 K/mcL (0.6-4.6); Monocytes # 0.3 K/mcL (0.0-1.3); Neutrophils # 6.4 K/mcL (1.6-8.9)
[2020-09-16 02:45] LABS: INR 1.2; Prothrombin Time 13.7 Seconds (9.4-12.1)
[2020-09-16 02:54] LABS: Albumin 3.3 g/dL (3.5-5.7); Bilirubin,Direct 6.1 mg/dL (0.0-0.2); Bilirubin,Indirect 2.1 mg/dL (0.0-1.0); Bilirubin,Total 8.2 mg/dL (0.3-1.0); Calcium 8.8 mg/dL (8.6-10.3); Globulin 3.3 g/dL (2.4-3.5); Potassium 4.2 mEq/L (3.5-5.1); Total Protein 6.6 g/dL (6.4-8.9)
[2020-09-16] MEDS: Furosemide 40 MG/4 ML VIAL IVP SCH (09:25)
[2020-09-16] MEDS: Metoprolol XL (24 HR) Succ 25 MG TAB.ER.24H PO SCH ×2 (09:25→20:59)
[2020-09-16] MEDS: MetroNIDAZOLE 500 MG/100 ML 500 MG/100 ML BAG IVPB SCH ×3 (09:25→23:44)
[2020-09-16] MEDS: Aspirin Enteric Coated 81 MG Tablet PO SCH (09:25)
[2020-09-16] MEDS: *HR* Amiodarone 200 MG TABLET PO SCH (09:25)
[2020-09-16] MEDS: Insulin LISPRO 300 UNITS/3 ML VIAL SQ SCH ×3 (09:26→16:44)
[2020-09-16 12:23] LABS: Albumin 3.1 g/dL (3.5-5.7); Albumin/Globulin Ratio 0.9 (1.1-2.2); Bilirubin,Direct 6.1 mg/dL (0.0-0.2); Bilirubin,Indirect 2.7 mg/dL (0.0-1.0); Bilirubin,Total 8.8 mg/dL (0.3-1.0); Globulin 3.3 g/dL (2.4-3.5); Total Protein 6.4 g/dL (6.4-8.9)
[2020-09-16] MEDS: cefTRIAXone 2,000 MG in Water for inj. (sterile) 20 ML IVP SCH (12:39)
[2020-09-16 12:40] LABS: Calcium 8.5 mg/dL (8.6-10.3); Potassium 4.2 mEq/L (3.5-5.1)
[2020-09-16] MEDS: Furosemide 40 MG TABLET PO SCH (16:44)
[2020-09-16] MEDS: Gabapentin 300 MG CAPSULE PO SCH (20:59)
[2020-09-16] MEDS: Insulin DETEMIR 100 UNIT/ML X5UNITS SQ SCH (21:00)
[2020-09-17] MEDS: *HR* Amiodarone 200 MG TABLET PO SCH (08:24)
[2020-09-17] MEDS: Metoprolol XL (24 HR) Succ 25 MG TAB.ER.24H PO SCH ×2 (08:24→20:45)
[2020-09-17] MEDS: Aspirin Enteric Coated 81 MG Tablet PO SCH (08:24)
[2020-09-17] MEDS: MetroNIDAZOLE 500 MG/100 ML 500 MG/100 ML BAG IVPB SCH ×3 (08:24→23:40)
[2020-09-17] MEDS: Insulin LISPRO 300 UNITS/3 ML VIAL SQ SCH ×3 (08:25→16:30)
[2020-09-17] MEDS: Furosemide 40 MG TABLET PO SCH ×2 (08:40→16:38)
[2020-09-17 10:34] LABS: Basophils % 0.4 %; Hematocrit 37.8 % (37.5-50.1); INR 1.2; Immature Granulocytes % 1.6 % (0-4); Lymphocytes # 0.6 K/mcL (0.6-4.6); Mean Corpuscular HGB Conc 31.7 g/dL (31.6-35.5); Mean Corpuscular Hemoglobin 32.2 pg (28.0-33.3); Mean Corpuscular Volume 101.3 fL (83.0-100.0); Mean Platelet Volume 12.3 fL (9.4-12.4); Monocytes # 0.3 K/mcL (0.0-1.3); Monocytes % 6.1 %; Neutrophils # 4.1 K/mcL (1.6-8.9); Platelet Count 150 K/mcL (140-400); Prothrombin Time 13.4 Seconds (9.4-12.1); Red Blood Count 3.73 M/mcL (4.19-5.50); Red Cell Distribution Width 15.2 % (11.5-14.5); Segmented Neutrophils % 79.9 %; White Blood Count 5.1 K/mcL (4.3-11.1)
[2020-09-17 10:44] LABS: Alanine Aminotransferase 99 Units/L (7-52); Albumin 2.8 g/dL (3.5-5.7); Albumin/Globulin Ratio 0.9 (1.1-2.2); Alkaline Phosphatase 173 Units/L (34-104); Aspartate Amino Transferase 118 Units/L (13-39); BUN/Creatinine Ratio 21 (6-26); Bilirubin,Total 7.4 mg/dL (0.3-1.0); Blood Urea Nitrogen 27 mg/dL (8-23); Calcium 8.5 mg/dL (8.6-10.3); Carbon Dioxide 35 mEq/L (23-29); Chloride 97 mEq/L (98-107); Glucose 254 mg/dL (70-105); Osmolality,Calculated 300 (280-300); Potassium 3.9 mEq/L (3.5-5.1); Sodium 138 mEq/L (136-145); Total Protein 5.8 g/dL (6.4-8.9); eGFR For African Americans > 60 (> 60); eGFR For Non-African Americans 56 (> 60)
[2020-09-17 12:33] LABS: Platelet Estimate Normal (Normal)
[2020-09-17 12:35] LABS: Anisocytosis 1+ (Not Present)
[2020-09-17 12:36] LABS: Toxic Granulation Present (Not Present)
[2020-09-17 12:42] LABS: Reactive Lymphocytes Present (Not Present)
[2020-09-17] MEDS: cefTRIAXone 2,000 MG in Water for inj. (sterile) 20 ML IVP SCH (12:51)
[2020-09-17] MEDS: Gabapentin 300 MG CAPSULE PO SCH (20:44)
[2020-09-17] MEDS: Insulin DETEMIR 100 UNIT/ML X5UNITS SQ SCH (20:45)
[2020-09-18 01:21] LABS: Hematocrit 37.3 % (37.5-50.1); Hemoglobin 11.8 g/dL (12.9-16.9); Mean Corpuscular HGB Conc 31.6 g/dL (31.6-35.5); Mean Corpuscular Hemoglobin 32.2 pg (28.0-33.3); Mean Corpuscular Volume 101.6 fL (83.0-100.0); Mean Platelet Volume 11.9 fL (9.4-12.4); Platelet Count 166 K/mcL (140-400); Red Blood Count 3.67 M/mcL (4.19-5.50); Red Cell Distribution Width 15.2 % (11.5-14.5); White Blood Count 4.9 K/mcL (4.3-11.1)
[2020-09-18 01:42] LABS: BUN/Creatinine Ratio 21 (6-26); Blood Urea Nitrogen 26 mg/dL (8-23); Calcium 8.5 mg/dL (8.6-10.3); Carbon Dioxide 35 mEq/L (23-29); Chloride 97 mEq/L (98-107); Glucose 234 mg/dL (70-105); Osmolality,Calculated 298 (280-300); Potassium 3.7 mEq/L (3.5-5.1); Sodium 138 mEq/L (136-145); eGFR For African Americans > 60 (> 60); eGFR For Non-African Americans > 60 (> 60)
[2020-09-18] MEDS: Aspirin Enteric Coated 81 MG Tablet PO SCH (08:58)
[2020-09-18] MEDS: *HR* Amiodarone 200 MG TABLET PO SCH (08:59)
[2020-09-18] MEDS: MetroNIDAZOLE 500 MG/100 ML 500 MG/100 ML BAG IVPB SCH ×3 (08:59→23:07)
[2020-09-18] MEDS: Insulin LISPRO 300 UNITS/3 ML VIAL SQ SCH ×3 (08:59→18:07)
[2020-09-18] MEDS: Metoprolol XL (24 HR) Succ 25 MG TAB.ER.24H PO SCH ×2 (08:59→20:48)
[2020-09-18] MEDS: Furosemide 40 MG TABLET PO SCH ×2 (09:00→18:07)
[2020-09-18 09:07] LABS: Alanine Aminotransferase 121 Units/L (7-52); Albumin 3.3 g/dL (3.5-5.7); Alkaline Phosphatase 206 Units/L (34-104); Aspartate Amino Transferase 108 Units/L (13-39); BUN/Creatinine Ratio 21 (6-26); Bilirubin,Total 4.9 mg/dL (0.3-1.0); Blood Urea Nitrogen 25 mg/dL (8-23); Calcium 9.2 mg/dL (8.6-10.3); Carbon Dioxide 36 mEq/L (23-29); Chloride 97 mEq/L (98-107); Globulin 3.4 g/dL (2.4-3.5); Glucose 143 mg/dL (70-105); Osmolality,Calculated 295 (280-300); Potassium 3.8 mEq/L (3.5-5.1); Sodium 139 mEq/L (136-145); Total Protein 6.7 g/dL (6.4-8.9); eGFR For African Americans > 60 (> 60); eGFR For Non-African Americans > 60 (> 60)
[2020-09-18] MEDS: cefTRIAXone 2,000 MG in Water for inj. (sterile) 20 ML IVP SCH (12:07)
[2020-09-18] MEDS ORDERED: *HR* Heparin 5,000 UNIT/ML VIAL IVP PRN ×2 (15:03)
[2020-09-18] MEDS: Heparin 25,000UNIT/250ML 1/2NS 25,000 UNIT/250 ML IV.SOLN IVC SCH (16:02)
[2020-09-18 16:09] LABS: Heparin anti-factor XA UFH < 0.04 IU/mL (0.30-0.70)
[2020-09-18 16:10] LABS: INR 1.2; Prothrombin Time 13.7 Seconds (9.4-12.1)
[2020-09-18] MEDS: Gabapentin 300 MG CAPSULE PO SCH (20:47)
[2020-09-18] MEDS: Insulin DETEMIR 100 UNIT/ML X5UNITS SQ SCH (20:48)
[2020-09-19] MEDS: Heparin 25,000UNIT/250ML 1/2NS 25,000 UNIT/250 ML IV.SOLN IVC SCH ×3 (00:57→13:07)
[2020-09-19 06:42] LABS: Hematocrit 38.5 % (37.5-50.1); Hemoglobin 11.9 g/dL (12.9-16.9); Mean Corpuscular HGB Conc 30.9 g/dL (31.6-35.5); Mean Corpuscular Hemoglobin 31.5 pg (28.0-33.3); Mean Corpuscular Volume 101.9 fL (83.0-100.0); Mean Platelet Volume 11.8 fL (9.4-12.4); Platelet Count 176 K/mcL (140-400); Red Blood Count 3.78 M/mcL (4.19-5.50); Red Cell Distribution Width 15.6 % (11.5-14.5); White Blood Count 4.8 K/mcL (4.3-11.1)
[2020-09-19 06:45] LABS: INR 1.2; Prothrombin Time 14.2 Seconds (9.4-12.1)
[2020-09-19 07:00] LABS: Alanine Aminotransferase 86 Units/L (7-52); Albumin 2.8 g/dL (3.5-5.7); Alkaline Phosphatase 174 Units/L (34-104); Aspartate Amino Transferase 65 Units/L (13-39); BUN/Creatinine Ratio 20 (6-26); Bilirubin,Total 2.7 mg/dL (0.3-1.0); Blood Urea Nitrogen 21 mg/dL (8-23); Calcium 8.7 mg/dL (8.6-10.3); Carbon Dioxide 37 mEq/L (23-29); Chloride 99 mEq/L (98-107); Globulin 2.9 g/dL (2.4-3.5); Glucose 105 mg/dL (70-105); Osmolality,Calculated 293 (280-300); Potassium 3.4 mEq/L (3.5-5.1); Sodium 140 mEq/L (136-145); Total Protein 5.7 g/dL (6.4-8.9); eGFR For African Americans > 60 (> 60); eGFR For Non-African Americans > 60 (> 60)
[2020-09-19 07:04] LABS: Lymphocytes # 1.5 K/mcL (0.6-4.6); Neutrophils # 3.3 K/mcL (1.6-8.9); Platelet Estimate Normal (Normal); Reactive Lymphocytes Present (Not Present)
[2020-09-19] MEDS: Insulin LISPRO 300 UNITS/3 ML VIAL SQ SCH ×3 (07:47→16:35)
[2020-09-19] MEDS: Metoprolol XL (24 HR) Succ 25 MG TAB.ER.24H PO SCH (08:41)
[2020-09-19] MEDS: MetroNIDAZOLE 500 MG/100 ML 500 MG/100 ML BAG IVPB SCH ×2 (08:41→16:35)
[2020-09-19] MEDS: *HR* Amiodarone 200 MG TABLET PO SCH (08:42)
[2020-09-19] MEDS: Aspirin Enteric Coated 81 MG Tablet PO SCH (08:42)
[2020-09-19] MEDS: Furosemide 40 MG TABLET PO SCH ×2 (08:43→16:37)
[2020-09-19] MEDS: cefTRIAXone 2,000 MG in Water for inj. (sterile) 20 ML IVP SCH (11:50)
[2020-09-19 16:43] VITALS: BP 106/64
== END 2020-09-19 18:26 | disposition short-term general hospital (02) | DRG 445 ==
LOC: 3BNU 23:08 → EMEROOARM 23:08 → SUATTDRO 09-14 03:38 → 3BNU 09-14 04:32 → SUATTDRO 09-16 16:50
PROVIDERS: ADMIT Family Medicine; ATTEND Internal Medicine